=== PATIENT | female | born 1970 | race Caucasian/White ===

== ENCOUNTER 2020-08-07 13:03 | Outpatient (REF) | payer BC, SELFPAY | END 2020-08-07 13:04 | disposition home or self-care (01) | LOC: HO.LAB 13:03 | PROVIDERS: Visit Provider Internal Medicine | DX: Z20.828 Contact with and (suspected) exposure to other viral communicable diseases (principal) | CPT/HCPCS: C9803; U0003 ==

== ENCOUNTER 2020-11-20 15:12 | Outpatient (REF) | payer BC, SELFPAY ==
[2020-11-20 17:07] LABS: Hematocrit 34.9 % (37-47); Hemoglobin 11.1 g/dl (12.0-16.0); Mean Corpuscular HGB Conc 31.8 g/dl (31.0-35.0); Mean Corpuscular Hemoglobin 27.6 pg (27.0-33.0); Mean Corpuscular Volume 86.8 fL (80-98); Mean Platelet Volume 10.1 fL (9.4-12.3); Platelet Count 295 X10*3/uL (160-400); Red Blood Count 4.02 X10*6/uL (4.20-5.50); Red Cell Distribution Width 13.3 % (11.0-16.0)
[2020-11-20 17:35] LABS: HCG Quantitative < 2 mIU/mL; Thyroid Stimulating Hormone 0.66 uIU/mL (0.32-4.0)
[2020-11-21 01:26] LABS: Follicle Stimulating Hormone 8.9 mIU/mL; Lutenizing Hormone 1.5 mIU/mL
[2020-11-21 08:49] LABS: CT PCR NOT DETECTED (Not Detect.); NG PCR NOT DETECTED (Not Detect.)
[2020-11-23 01:07] LABS: HPV mRNA E6/E7 rflx Not Detected (Not Detected)
== END 2020-11-20 15:13 | disposition home or self-care (01) ==
LOC: HO.LAB 15:12
PROVIDERS: PCP Internal Medicine; Visit Provider Obstetrics & Gynecology
DX: Z01.419 Encounter for gynecological examination (general) (routine) without abnormal findings (principal); Z11.51 Encounter for screening for human papillomavirus (HPV); Z11.3 Encounter for screening for infections with a predominantly sexual mode of transmission; N92.0 Excessive and frequent menstruation with regular cycle
CPT/HCPCS: 36415; 83001; 83002; 84443; 84702; 85027; 87491; 87591; 87624; 88142

== ENCOUNTER 2020-12-10 15:59 | Outpatient (REF) | payer BC, SELFPAY ==
--- NOTE | ~2020-12-10 | US_ITS ---
EXAMINATION: US PELVIC ULTRASOUND CLINICAL INFORMATION: Excessive and frequent menstruation. COMPARISON: None. TECHNIQUE: Transabdominal and transvaginal pelvic ultrasounds were performed. Transvaginal exam was performed for better visualization of the uterus and ovaries. Transvaginal exam is limited due to patient's inability to empty her bladder. FINDINGS: The uterus is anteverted and measures 13.2 x 6.8 x 7.5 cm in dimension. Uterine echotexture is heterogeneous. There are at least 2 uterine fibroids in the anterior uterine body adjacent to the endometrium measuring 1.8 x 2 x 2.6 cm and 1.8 x 2.4 x 1.4 cm. Endometrial thickness is normal measuring 1.2 cm. There are nabothian cysts in the cervix. The right ovary is not seen. The left ovary is seen transabdominally only. The left ovary is slightly prominent and measures 5 x 2 x 3.6 cm, volume 19 mL. No focal ovarian lesion is seen. There is no fluid in the pelvis. US/US transvaginal IMPRESSION: Limited exam. Enlarged fibroid uterus. At least 2 uterine fibroids are identified in the anterior uterine body adjacent to the endometrium. Right ovary not seen.
--- NOTE | ~2020-12-10 | US_ITS ---
EXAMINATION: US PELVIC ULTRASOUND CLINICAL INFORMATION: Excessive and frequent menstruation. COMPARISON: None. TECHNIQUE: Transabdominal and transvaginal pelvic ultrasounds were performed. Transvaginal exam was performed for better visualization of the uterus and ovaries. Transvaginal exam is limited due to patient's inability to empty her bladder. FINDINGS: The uterus is anteverted and measures 13.2 x 6.8 x 7.5 cm in dimension. Uterine echotexture is heterogeneous. There are at least 2 uterine fibroids in the anterior uterine body adjacent to the endometrium measuring 1.8 x 2 x 2.6 cm and 1.8 x 2.4 x 1.4 cm. Endometrial thickness is normal measuring 1.2 cm. There are nabothian cysts in the cervix. The right ovary is not seen. The left ovary is seen transabdominally only. The left ovary is slightly prominent and measures 5 x 2 x 3.6 cm, volume 19 mL. No focal ovarian lesion is seen. There is no fluid in the pelvis. US/US pelvic complete IMPRESSION: Limited exam. Enlarged fibroid uterus. At least 2 uterine fibroids are identified in the anterior uterine body adjacent to the endometrium. Right ovary not seen.
== END 2020-12-10 16:00 | disposition home or self-care (01) ==
LOC: HO.US 15:59
PROVIDERS: Visit Provider Obstetrics & Gynecology
DX: N92.0 Excessive and frequent menstruation with regular cycle (principal)
CPT/HCPCS: 76830; 76856

== ENCOUNTER → 2020-12-19 13:04 | Outpatient (BNVA) | payer BC, SELFPAY | PROVIDERS: PCP Internal Medicine; Visit Provider Obstetrics & Gynecology ==

== ENCOUNTER → 2020-12-27 08:44 | Outpatient (BNVA) | payer BC, SELFPAY | PROVIDERS: PCP Internal Medicine; Visit Provider Nurse Practitioner ==

== ENCOUNTER 2021-01-14 13:58 | Outpatient (REF) | payer BC, SELFPAY | END 2021-01-14 13:59 | disposition home or self-care (01) | LOC: HO.LAB 13:58 | PROVIDERS: Visit Provider Obstetrics & Gynecology | DX: N92.0 Excessive and frequent menstruation with regular cycle (principal) | CPT/HCPCS: 58100; 88305 ==

== ENCOUNTER → 2021-04-08 14:45 | Outpatient (BNVA) | payer BC, SELFPAY | PROVIDERS: Visit Provider Obstetrics & Gynecology ==

== ENCOUNTER 2021-05-08 10:41 | Outpatient (REF) | payer BC, SELFPAY | END 2021-05-08 10:42 | disposition home or self-care (01) | LOC: HO.LAB 10:41 | PROVIDERS: Visit Provider Internal Medicine | DX: Z20.822 Contact with and (suspected) exposure to COVID-19 (principal) | CPT/HCPCS: C9803; U0003; U0005 ==

== ENCOUNTER 2021-05-27 13:01 | Outpatient (REF) | payer BC, SELFPAY ==
--- NOTE | ~2021-05-27 | MM_ITS ---
EXAMINATION: MM SCREENING DIGITAL BREAST TOMOSYNTHESIS, BILATERAL CLINICAL INFORMATION: Screening. Asymptomatic. The lifetime risk of breast cancer based on the Tyrer-Cuzick Model is 7%. COMPARISON: Outside mammography: ([facility]); 05/05/2013 (right, [facility]); 05/05/2013 ([facility]). TECHNIQUE: Digital breast tomosynthesis is performed in both the craniocaudal and mediolateral oblique views along with computer-aided detection (CAD). Synthesized 2D images are generated from the tomosynthesis. Additional left CC view is provided. FINDINGS: There are scattered areas of fibroglandular density (ACR BI-RADS breast composition Category b). There are no significant masses, abnormal calcifications, or other abnormalities. Parenchymal pattern is similar to prior study. There is a oval nodular asymmetry 1 cm mid upper left breast on MLO view without significant change since 2018. The axilla and skin contours are unremarkable. MM/MM tomosynthesis screening BI IMPRESSION: No significant change from prior outside exam. ASSESSMENT: BI-RADS 2: Benign RECOMMENDATION: Routine annual mammography screening. This patient's information was entered into a reminder system with a target due date for their next mammogram.
== END 2021-05-27 13:02 | disposition home or self-care (01) ==
LOC: HO.MAMMO 13:01
PROVIDERS: Visit Provider Obstetrics & Gynecology
DX: Z12.31 Encounter for screening mammogram for malignant neoplasm of breast (principal)
CPT/HCPCS: 77063; 77067

== ENCOUNTER → 2021-09-08 15:54 | Outpatient (BNVA) | payer BC, SELFPAY | PROVIDERS: Visit Provider Obstetrics & Gynecology ==

== ENCOUNTER 2022-06-01 16:01 | Outpatient (REF) | payer MEDICAID, SELFPAY ==
--- NOTE | ~2022-06-01 | MM_ITS ---
EXAMINATION: MM SCREENING DIGITAL BREAST TOMOSYNTHESIS, BILATERAL CLINICAL INFORMATION: Screening. Asymptomatic. The lifetime risk of breast cancer based on the Tyrer-Cuzick Model is 7%. COMPARISON: Mammography: 05/27/2021; outside mammography 12/15/2017 ([facility]); outside mammography 05/12/2013, 05/05/2013 ([facility]). TECHNIQUE: Digital breast tomosynthesis is performed in both the craniocaudal and mediolateral oblique views along with computer-aided detection (CAD). Synthesized 2D images are generated from the tomosynthesis. FINDINGS: There are scattered areas of fibroglandular density (ACR BI-RADS breast composition Category b). There are no significant masses, abnormal calcifications, or other abnormalities. Parenchymal pattern is similar to prior exams. No developing density or architectural abnormality. There is a stable smooth oval nodule upper outer quadrant left breast again noted. The axilla and skin contours are unremarkable. MM/MM tomosynthesis screening BI IMPRESSION: No mammographic evidence of malignancy. ASSESSMENT: BI-RADS 2: Benign RECOMMENDATION: Routine annual mammography screening. This patient's information was entered into a reminder system with a target due date for their next mammogram.
== END 2022-06-01 16:02 | disposition home or self-care (01) ==
LOC: HO.MAMMO 16:01
PROVIDERS: Visit Provider Obstetrics & Gynecology
DX: Z12.31 Encounter for screening mammogram for malignant neoplasm of breast (principal)
CPT/HCPCS: 77063; 77067

== ENCOUNTER 2024-01-20 15:15 | Outpatient (REF) | payer OTHER, SELFPAY | END 2024-01-20 15:16 | disposition home or self-care (01) | LOC: HO.MAMMO 15:15 | PROVIDERS: PCP Internal Medicine; Visit Provider Obstetrics & Gynecology | DX: Z12.31 Encounter for screening mammogram for malignant neoplasm of breast (principal) | CPT/HCPCS: 77063; 77067 ==

== ENCOUNTER → 2024-01-20 15:45 | Outpatient (BNV) | payer OTHER, SELFPAY | PROVIDERS: PCP Internal Medicine; Visit Provider Radiology Diagnostic Radiology | DX: Z12.31 Encounter for screening mammogram for malignant neoplasm of breast (principal) | CPT/HCPCS: 77063; 77067 ==

== ENCOUNTER 2025-04-02 08:27 | Outpatient (REF) | payer OTHER, SELFPAY ==
--- OUTSIDE RECORDS SUMMARY | 2024-08-03 07:30 | XMS_ITS ---
Author Organization [facility] [address] Address [address] [place] [address] Care Team Providers Care Book Reviewer Name Role Phone HAWAKimberly CLAUDIA Unavailable [phone] Medications Medication SIG (Take, Route, Frequency, Duration) Notes Start Date End Date Status Mirtazapine 15 MG 1 tablet at bedtime Orally Once a day; Duration: 30 days Active Cephalexin 500 MG 1 capsule Orally thr ee times a day; Duration: 7 days Active Ferretts 325 (106 Fe) MG TAKE 1 TABLET B Y MOUTH EVERY DAY; Duration: 90 Active Vitamin C 500 MG TAKE 1 CAPSULE BY MO UTH EVERY DAY FOR 90 DAYS; Duration: 90 Active Memantine HCl 5 MG 1 tablet Orally Once a day; Duration: 30 days Active Escitalopram Oxalate 10 MG TAKE 1 TABLET BY MOUTH EVERY DAY; Duration: 90 Active Pantoprazole Sodium 40 MG TAKE 1 TABLET BY MOUTH EVERY DAY; Duration: 90 Active Vraylar 1.5 MG TAKE 1 CAPSULE BY MO UTH EVERY DAY FOR 90 DAYS; Duration: 30 Active Encounters Encounter Location Date Provider Diagnosis [facility] [address] [place] [id number] 08/03/2024 CLAUDIA GARCIA Encephalopathy, unspecified type G93.40 ; Dementia with anxiety, unspecified dementia severity, unspecified dementia type F03.94 ; Memory loss, short term R41.3 ; Cognitive impairment R41.89 ; Hypertension, unspecified type I10 ; Gastroesophageal reflux disease without esophagitis K21.9 ; Anemia, unspecified type D64.9 ; Other incomplete lesion at C2 level of cervical spinal cord, initial encounter S14.152A and Mixed incontinence N39.46 Assessments Encounter Date Diagnosis (ICD Code) Assessment Notes Treatment Notes Treatment Clinical Notes Section Notes 08/03/2024 Encephalopathy, unspecified type (ICD-10 - G93.40) Acute Concerns/Problem List: 08/03/2024 Of note, some information is being carried forward from prior records for informational purposes only and is being cited so that efficiency, safety and quality of the patient's care is not compromised This note was prepared using voice recognition software and direct typing Please excuse inadvertent supervisor stone or typing errors, or uncorrected word substitutions Although every attempt has been made by the provider to proofread this document, occasional misspellings and typographical errors may still be present Due to the previous pandemic, and the use of personal protective equipment (PPE) This may decrease voice recognition accuracy Inadvertent supervisor stone errors may occur 08/03/2024 Dementia with anxiety, unspecified dementia severity, unspecified dementia type (ICD-10 - F03.94) Acute Concerns/Problem List: 08/03/2024 Of note, some information is being carried forward from prior records for informational purposes only and is being cited so that efficiency, safety and quality of the patient's care is not compromised This note was prepared using voice recognition software and direct typing Please excuse inadvertent supervisor stone or typing errors, or uncorrected word substitutions Although every attempt has been made by the provider to proofread this document, occasional misspellings and typographical errors may still be present Due to the previous pandemic, and the use of personal protective equipment (PPE) This may decrease voice recognition accuracy Inadvertent supervisor stone errors may occur 08/03/2024 Memory loss, short term (ICD-10 - R41.3) Acute Concerns/Problem List: 08/03/2024 Of note, some information is being carried forward from prior records for informational purposes only and is being cited so that efficiency, safety and quality of the patient's care is not compromised This note was prepared using voice recognition software and direct typing Please excuse inadvertent supervisor stone or typing errors, or uncorrected word substitutions Although every attempt has been made by the provider to proofread this document, occasional misspellings and typographical errors may still be present Due to the previous pandemic, and the use of personal protective equipment (PPE) This may decrease voice recognition accuracy Inadvertent supervisor stone errors may occur 08/03/2024 Cognitive impairment (ICD-10 - R41.89) Acute Concerns/Problem List: 08/03/2024 Of note, some information is being carried forward from prior records for informational purposes only and is being cited so that efficiency, safety and quality of the patient's care is not compromised This note was prepared using voice recognition software and direct typing Please excuse inadvertent supervisor stone or typing errors, or uncorrected word substitutions Although every attempt has been made by the provider to proofread this document, occasional misspellings and typographical errors may still be present Due to the previous pandemic, and the use of personal protective equipment (PPE) This may decrease voice recognition accuracy Inadvertent supervisor stone errors may occur 08/03/2024 Hypertension, unspecified type (ICD-10 - I10) Acute Concerns/Problem List: 08/03/2024 Of note, some information is being carried forward from prior records for informational purposes only and is being cited so that efficiency, safety and quality of the patient's care is not compromised This note was prepared using voice recognition software and direct typing Please excuse inadvertent supervisor stone or typing errors, or uncorrected word substitutions Although every attempt has been made by the provider to proofread this document, occasional misspellings and typographical errors may still be present Due to the previous pandemic, and the use of personal protective equipment (PPE) This may decrease voice recognition accuracy Inadvertent supervisor stone errors may occur 08/03/2024 Gastroesophageal reflux disease without esophagitis (ICD-10 - K21.9) Acute Concerns/Problem List: 08/03/2024 Of note, some information is being carried forward from prior records for informational purposes only and is being cited so that efficiency, safety and quality of the patient's care is not compromised This note was prepared using voice recognition software and direct typing Please excuse inadvertent supervisor stone or typing errors, or uncorrected word substitutions Although every attempt has been made by the provider to proofread this document, occasional misspellings and typographical errors may still be present Due to the previous pandemic, and the use of personal protective equipment (PPE) This may decrease voice recognition accuracy Inadvertent supervisor stone errors may occur 08/03/2024 Anemia, unspecified type (ICD-10 - D64.9) Acute Concerns/Problem List: 08/03/2024 Of note, some information is being carried forward from prior records for informational purposes only and is being cited so that efficiency, safety and quality of the patient's care is not compromised This note was prepared using voice recognition software and direct typing Please excuse inadvertent supervisor stone or typing errors, or uncorrected word substitutions Although every attempt has been made by the provider to proofread this document, occasional misspellings and typographical errors may still be present Due to the previous pandemic, and the use of personal protective equipment (PPE) This may decrease voice recognition accuracy Inadvertent supervisor stone errors may occur 08/03/2024 Other incomplete lesion at C2 level of cervical spinal cord, initial encounter (ICD-10 - S14.152A) Acute Concerns/Problem List: 08/03/2024 Of note, some information is being carried forward from prior records for informational purposes only and is being cited so that efficiency, safety and quality of the patient's care is not compromised This note was prepared using voice recognition software and direct typing Please excuse inadvertent supervisor stone or typing errors, or uncorrected word substitutions Although every attempt has been made by the provider to proofread this document, occasional misspellings and typographical errors may still be present Due to the previous pandemic, and the use of personal protective equipment (PPE) This may decrease voice recognition accuracy Inadvertent supervisor stone errors may occur 08/03/2024 Mixed incontinence (ICD-10 - N39.46) Acute Concerns/Problem List: 08/03/2024 Of note, some information is being carried forward from prior records for informational purposes only and is being cited so that efficiency, safety and quality of the patient's care is not compromised This note was prepared using voice recognition software and direct typing Please excuse inadvertent supervisor stone or typing errors, or uncorrected word substitutions Although every attempt has been made by the provider to proofread this document, occasional misspellings and typographical errors may still be present Due to the previous pandemic, and the use of personal protective equipment (PPE) This may decrease voice recognition accuracy Inadvertent supervisor stone errors may occur Plan Of Treatment Medication Medication Name Sig Start Date Stop Date Notes Mirtazapine 15 MG 1 tablet at bedtime Orally Once a day; Duration: 30 days Cephalexin 500 MG 1 capsule Orally thr ee times a day; Duration: 7 days Progress Notes * TERRA RUSSODOB:[birth year] (54 yo F)Acc No.[id number]:08/03/2024 Progress Notes Patient: TERRA SON Provider: Nadiya GARCIA NP :1970 A ge:53 Y S ex:Female Date:08/03/2024 Address:[address] [place] [address], [id number] Subjective: * Chief Complaints: * * HPI: C onstitutional: Patient is here for Chronic Disease Management follow-up visit Patient seen and examined. Full past medical history, social history, family history, allergies and current medications were reviewed and updated. Acute Concerns/Problem List: 08/03/2024 Here with Tisha daughter We recently completed [place] paperwork for her HCP Tisha , ACP forms on file, Pt is currently attending adult day program from 8:30-2:30 5 days a week. Pt's notes that she has gained some weight recently and believes that it is due to her medications, likely the escitalopram. 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 Family is currently taking care of her. per daughter forgetting to eat, takes showers multiple times a day because she forgets, Does not Do ADL's unless prompted, worsening functionality per family She is also incontinent of stool and urine and requires wearing adult briefs daily she endorses worsening of her vision since the memory problem started. pt would like closer supervision, and adult day care they fear for her being alone Her reports that her appetite has been [...] the head with woman's shoes while at [employer], causing head laceration since then symptoms have persisted She was referred to neurology at [facility] Evaluation was done in the office including [...] COVID MRNA Vax -3 doses shingrix x 2 Flu 2023: at pharmacy Mammo- UTD Dexa- Not yet Cscope - Done November 2020-Surveillance every 10 years. * ROS: A ll Other Systems: Review of Systems (ROS) A ll others negative except those mentioned in HPI. * Medical History: * Medications: T aking Cephalexin 500 MG Capsule 1 capsule Orally three times a day , Taking Escitalopram Oxalate 10 MG Tablet TAKE 1 TABLET BY MOUTH EVERY DAY , Taking Pantoprazole Sodium 40 MG Tablet Delayed Release TAKE 1 TABLET BY MOUTH EVERY DAY , Taking Vraylar 1.5 MG Capsule TAKE 1 CAPSULE BY MOUTH EVERY DAY FOR 90 DAYS , Taking Ferretts 325 (106 Fe) MG Tablet TAKE 1 TABLET BY MOUTH EVERY DAY , Taking Vitamin C 500 MG Capsule TAKE 1 CAPSULE BY MOUTH EVERY DAY FOR 90 DAYS , Taking Mirtazapine 15 MG Tablet 1 tablet at bedtime Orally Once a day , Taking Memantine HCl 5 MG Tablet 1 tablet Orally Once a day Objective: * Vitals: * Examination: G eneral Examination: GENERAL APPEARANCE: i n no acute distress, well developed, well nourished. H EAD: n ormocephalic, atraumatic. E YES: p upils equal, round, reactive to light and accommodation. E ARS: n ormal. O RAL CAVITY: m ucosa moist. T HROAT: c lear. N LAST/THYROID: n last supple, full range of motion, no cervical lymphadenopathy. S KIN: n o suspicious lesions, warm and dry. H EART: n o murmurs, regular rate and rhythm, S1, S2 normal. L UNGS: c lear to auscultation bilaterally. A BDOMEN: n ormal, bowel sounds present, soft, nontender, nondistended. E XTREMITIES: n o clubbing, cyanosis, or edema. N EUROLOGIC: n onfocal, motor strength normal upper and [...] nemia, unspecified type - D64.9 8 . O ther incomplete lesion at C2 level of cervical spinal cord, initial encounter - S14.152A 9. M ixed incontinence - N39.46 Acute Concerns/Problem List: 08/03/2024 Of note, some information is being carried forward from prior records for informational purposes only and is being cited so that efficiency, safety and quality of the patient's care is not compromised This note was prepared using voice recognition software and direct typing Please excuse inadvertent supervisor stone or typing errors, or uncorrected word substitutions Although every attempt has been made by the provider to proofread this document, occasional misspellings and typographical errors may still be present Due to the previous pandemic, and the use of personal protective equipment (PPE) This may decrease voice recognition accuracy Inadvertent supervisor stone errors may occur. Plan: * Treatment: * Procedure Codes: 9 9199 NO SHOW OFFICE VISIT * Images: Billing Information: * Visit Code: * Procedure Codes: 97010 NO SHOW OFFICE VISIT. Care Plan Details* * Electronic signature of TAMMY GARCIA on 04/02/2025 at 08:51 AM EDT Sign off status: Pending * Provider: Nadiya GARCIA NP Date: 10/04/2023 Generated for Yin carter/Moses/Lee on: 0 04/02/2025 08:51 AM EDT History and Physical Notes * HPI (History of Present Illness) Category Sub-Category Detail Notes Category Not es Constitutional Patient is here for Chronic Disease Management follow-up visit Patient seen and examined. Full past medical history, social history, family history, allergies and current medications were reviewed and updated. Acute Concerns/Problem List: 08/03/2024 Here with Tisha daughter We recently completed [place] paperwork for her HCP Tisha , ACP forms on file, Pt is currently attending adult day program from 8:30-2:30 5 days a week. Pt's notes that she has gained some weight recently and believes that it is due to her medications, likely the escitalopram. 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 Family is currently taking care of her. per daughter forgetting to eat, takes showers multiple times a day because she forgets, Does not Do ADL's unless prompted, worsening functionality per family She is also incontinent of stool and urine and requires wearing adult briefs daily she endorses worsening of her vision since the memory problem started. pt would like closer supervision, and adult day care they fear for her being alone Her reports that her appetite has been [...] the head with woman's shoes while at [employer], causing head laceration since then symptoms have persisted She was referred to neurology at [facility] Evaluation was done in the office including [...] COVID MRNA Vax -3 doses shingrix x 2 Flu 2023: at pharmacy Mammo- UTD Dexa- Not yet Cscope - Done November 2020-Surveillance every 10 years Examination Category Sub-Category Detail Notes Category Not es General Examination GENERAL APPEARANCE: in no ac [place] distress, well developed, well nourished HEAD: normocephalic, [...]
--- OUTSIDE RECORDS SUMMARY | 2025-04-02 08:51 | XMS_ITS | Clinical Summary ---
Author Organization [facility] Address [address] [place] [address] Care Team Providers Care Elevator Erector Name Role Phone Karley Figueroa MD Primary Care Provider Allergies No known active allergies Medications Medication Sig Dispensed Refills Start Date End Date Status Ascorbic Acid (Vitamin C) 500 MG CAPS TAKE 1 CAPSULE BY MOUTH EVERY DAY FOR 90 DAYS 0 11/11/2023 Active Vraylar 1.5 MG capsule TAKE 1 CAPSULE BY MOUTH EVERY DAY FOR 90 DAYS 0 11/30/2023 Active lisinopril (PRINIVIL,ZESTRIL) tablet 10 mg TAKE 1 TABLET BY MOUTH EVERY DAY FOR 90 DAYS 0 11/11/2023 Active mirtazapine (REMERON) 15 MG tablet Take 1 tablet (15 mg total) by mouth every night at bedtime. 0 11/15/2023 Active pantoprazole (PROTONIX) 40 MG tablet Take 1 tablet (40 mg total) by mouth daily. 0 11/30/2023 Active escitalopram (LEXAPRO) 20 MG tablet TAKE 1 TABLET BY MOUTH EVERY DAY FOR 90 DAYS 0 11/11/2023 Active Ferretts 325 (106 Fe) MG TABS Take 1 tablet by mouth daily. 0 11/11/2023 Active traZODone (DESYREL) 50 MG tablet Take 1 tablet (50 mg total) by mouth every night at bedtime. 0 Active memantine (NAMENDA) 5 MG tabletIndications:Mem ory loss, short term Take 1 tablet (5 mg total) by mouth daily. 30 tablet 2 01/28/2024 Active Social History Tobacco Use Types Packs/Day Years Used Date Smoking Tobacco: Never Assessed Sex and Gender Information Value Date Recorded Sex Assigned at Female 12/10/2023 2:02 PM EDT Gender Identity Not on file Sexual Orientation Not on file Job Start Date Occupation Industry Not on file Not on file Not on file Last Filed Vital Signs Vital Sign Reading Time Taken Comments Blood Pressure 133/84 01/28/2024 3:50 PM EDT Pulse 79 01/28/2024 3:50 PM EDT Temperature - - Respiratory Rate - - Oxygen Saturation - - Inhaled Oxygen Concentration - - Weight - - Height - - Body Mass Index - - Plan of Treatment Health Maintenance Due Date Last Done Comments Hepatitis B Vaccines (1 of 3 - 3-dose series) 1970 Hepatitis C Screening 1970 COVID-19 Vaccine (#1) 02/17/1970 Depression Screening 1981 Preventative Health Evaluation 1987 DTap / Tdap / Td (1 - Tdap) 1988 Cervical Cancer Screening (P ap Smear) 1990 Colon Cancer Screening (Colonoscopy) 2014 Breast Cancer Screening (Mammogram) 2019 Shingrix-Zoster Vaccine (1 of 2) 2019 Influenza Vaccine (#1) 2025 Pneumococcal Vaccine Aged Out No long er eligible based on patient's age to complete this topic RSV Ped < 20 months Aged Out No longe r eligible based on patient's age to complete this topic Care Teams Elevator Erector Relationship Specialty Start Date End Date Karley Figueroa MD [address] [place] [phone] PCP - General Internal Medicine 11/22/23
--- OUTSIDE RECORDS SUMMARY | 2025-04-02 08:51 | XMS_ITS | Clinical Summary ---
Author Organization [facility] Address [address] [place] [id number] Phone Care Team Providers Care Project Crew Worker Name Role Phone Mikayla Figueroa MD Primary Care Provider + [phone] Social History Tobacco Use Types Packs/Day Years Used Date Smoking Tobacco: Never Assessed Education Answer Date Recorded Are you interested in more education? Not on angelika e 05/18/2023 Are you concerned about learning? Not on file 05/18/2023 No 05/18/2023 No 05/18/2023 Digital Access Answer Date Recorded No 05/18/2023 No 05/18/2023 Reliable internet access at home? Not on file 05/18/2023 Device with a working camera? Not on file Comments Unknown Sex and Gender Information Value Date Recorded Sex Assigned at Not on file Legal Sex Female 3:22 PM EDT Gender Identity Not on file Sexual Orientation Not on file Plan of Treatment Health Maintenance Due Date Last Done Comments Adult Td,Tdap Booster 1970 LIPID PANEL 1969 DEPRESSION SCREENING 1981 SMOKING Hx and SMOKELESS TOB ACCO SCREENING 1982 HEPATITIS C SCREENING 1987 HIV ONE-TIME SCREENING (18-6 5 YEARS) 1987 PAP SMEAR 1990 MAMMOGRAM 2009 COLOGUARD 2014 COLONOSCOPY 2014 COLORECTAL CANCER SCREENING 2014 FIT TEST 2014 FOBT 2014 SIGMOIDOSCOPY 2014 VIRTUAL COLONOSCOPY 2014 PNEUMOCOCCAL VACCINES (50+ y ears) (1 of 1 - PCV) 2019 ZOSTER VACCINES (1 of 2) 2019 COVID-19 VACCINE (2023-2 5 season) 2024 HEPATITIS A VACCINES Aged Out No long er eligible based on patient's age to complete this topic HIB VACCINES Aged Out No longer eligi ble based on patient's age to complete this topic MENINGOCOCCAL VACCINES (ACWY) Aged Out No longer eligible based on patient's age to complete this topic MENINGOCOCCAL VACCINES (B) Aged Out N o longer eligible based on patient's age to complete this topic Medical Devices Not on file Insurance Care Teams Project Crew Worker Relationship Specialty Start Date End Date Mikayla Figueroa MD [address] [place] [phone] PCP - General 05/10/23 Additional Source Comments The information contained in this document represents components of the legal health record. It is not the complete legal health record.[facility]
--- OUTSIDE RECORDS SUMMARY | 2025-04-02 08:51 | XMS_ITS | Clinical Summary ---
Author Organization [facility] Address [address] [place] [address] Care Team Providers Care Flexographic Press Operator Name Role Phone Name, Harvey CARDOZO Primary Care Provider [phone] Medications lisinopriL (PRINIVIL,ZESTR IL) 10 mg tablet Take 1 tablet (10 mg total) by mouth 1 (one) time each day. 11/11/2023 Active ferrous fumarate 325 mg (106 mg iron) tablet Take 1 tablet by mouth 1 (one) time each day. 11/11/2023 Active escitalopram (LEXAPRO) 20 mg tablet Take 1 tablet (20 mg total) by mouth 1 (one) time each day. 11/11/2023 Active cariprazine (Vraylar) 1.5 mg capsule Take 1 capsule (1.5 mg total) by mouth 1 (one) time each day. 11/30/2023 Active ascorbic acid, vitamin C, 500 mg capsule Take 1 capsule by mouth 1 (one) time each day. 11/11/2023 Active memantine (NAMENDA) 5 mg tablet Take 1 tablet (5 mg total) by mouth 1 (one) time each day. 90 each 1 06/19/2024 Active Surgical History Surgery Date Site/Laterality Comments TUBAL LIGATION PROCEDURE: HISTORICAL TUBAL LIGATION Family History Medical History Relation Name Comments Hypertension Father Diabetes Mother Hypertension Mother Relation Name Status Comments Brother 1 Alive Brother 2 Alive Brother 3 Alive Brother 4 Alive Daughter 1 Alive Daughter 2 Alive Daughter 3 Alive Father mi Mother Alive dm Sister Alive Son Alive Social History Tobacco Use Types Packs/Day Years Used Date Smoking Tobacco: Former Alcohol Use Standard Drinks/Week Comments Yes 0 (1 standard drink = 0.6 oz pur e alcohol) Comments Unknown Sex and Gender Information Value Date Recorded Sex Assigned at Not on file Legal Sex Female 2:14 AM EST Gender Identity Not on file Sexual Orientation Not on file Obstetrics History Last Filed Vital Signs Vital Sign Reading Time Taken Comments Blood Pressure 133/84 01/28/2024 3:50 PM EDT Lef t arm Pulse 79 01/28/2024 3:50 PM EDT Temperature - - Respiratory Rate - - Oxygen Saturation - - Inhaled Oxygen Concentration - - Weight - - Height - - Body Mass Index - - Plan of Treatment Health Maintenance Due Date Last Done Comments Breast Cancer Screening 1969 DTaP,Tdap,and Td Vaccines (1 - Tdap) 1988 Hepatitis B Vaccines (1 of 3 - 19+ 3-dose series) 1988 Cervical Cancer Screening: P ap Smear 1990 Pneumococcal Vaccine: 50+ Ye ars (1 of 1 - PCV) 2019 Zoster Vaccines (1 of 2) 2019 Colorectal Cancer Screening: Colonoscopy 07/19/2022 HIV Screening 07/19/2022 Hepatitis C Screening 07/19/2022 Social Influencers of Health Screening 07/19/2022 COVID-19 Vaccine ( - 2023-2 5 season) 2024 Depression Screening 08/16/2024 Influenza Vaccine (#1) 2025 HIB Vaccines Aged Out No longer eligi ble based on patient's age to complete this topic HPV Vaccines Aged Out No longer eligi ble based on patient's age to complete this topic Hepatitis A Vaccines Aged Out No long er eligible based on patient's age to complete this topic IPV Vaccines Aged Out No longer eligi ble based on patient's age to complete this topic MMR Vaccines Aged Out No longer eligi ble based on patient's age to complete this topic Meningococcal ACWY Vaccine Aged Out N o longer eligible based on patient's age to complete this topic Meningococcal B Vaccine Aged Out No l onger eligible based on patient's age to complete this topic RSV Immunization Patients Un jeff 20 months Aged Out No longer eligible b ased on patient's age to complete this topic Varicella Vaccines Aged Out No longer eligible based on patient's age to complete this topic Care Teams Flexographic Press Operator Relationship Specialty Start Date End Date Name, MD Harvey [address] [phone] (Work) PCP - General 12/20/07
--- OUTSIDE RECORDS SUMMARY | 2025-04-02 08:51 | XMS_ITS ---
Author Name [facility] Organization Unknown History of Medication Use Medication Directions Dispensed Refills Start Date End Date Stat us memantine (NAMENDA) 5 mg tablet Take 1 tablet (5 mg total) by mouth 1 (one) time each day. 06/19/2024 active cariprazine (Vraylar) 1.5 mg capsule Take 1 capsule (1.5 mg total) by mouth 1 (one) time each day. 11/30/2023 active Vraylar 1.5 MG capsule TAKE 1 CAPSULE BY MOUTH EVERY DAY FOR 90 DAYS 11/30/2023 active Ascorbic Acid (Vitamin C) 500 MG CAPS TAKE 1 CAPSULE BY MOUTH EVERY DAY FOR 90 DAYS 11/11/2023 active ascorbic acid, vitamin C, 500 mg capsule Take 1 capsule by mouth 1 (one) time each day. 11/11/2023 active escitalopram (LEXAPRO) 20 mg tablet Take 1 tablet (20 mg total) by mouth 1 (one) time each day. 11/11/2023 active ferrous fumarate 325 mg (106 mg iron) tablet Take 1 tablet by mouth 1 (one) time each day. 11/11/2023 active lisinopriL (PRINIVIL,ZESTRIL) 10 mg tablet Take 1 tablet (10 mg total) by mouth 1 (one) time each day. 11/11/2023 active traZODone (DESYREL) 50 MG tablet Take 1 tablet (50 mg total) by mouth every night at bedtime. active Problems Problem Status Onset Date Problem Type Date of Resoluti on Source Memory loss, short term active EncounterDiagnosisAct CTTHNE MG
== END 2025-04-02 08:28 | disposition home or self-care (01) ==
LOC: HO.MAMMO 08:27
PROVIDERS: PCP Family Medicine; Visit Provider Family Medicine
DX: Z13.89 Encounter for screening for other disorder (principal)

== ENCOUNTER 2025-08-07 12:56 | Emergency (ER) | payer OTHER, SELFPAY ==
--- OUTSIDE RECORDS SUMMARY | 2024-04-08 04:30 | XMS_ITS ---
Author Organization [facility] Address [address] [place] [address] Care Team Providers Care Environmental Science Instructor Name Role Phone CLAUDIA GARCIA Unavailable [phone] REASON FOR VISIT FMLA Medications Medication SIG (Take, Route, Frequency, Duration) Notes Start Date End Date Status Mirtazapine 15 MG Tablet 1 tablet at bed time Orally Once a day; Duration: 30 days Active Cephalexin 500 MG Capsule 1 capsule Oral ly three times a day; Duration: 7 days Active Encounters Encounter Location Date Provider Diagnosis [facility] [address] [place] [address] 04/08/2024 CLAUDIA GACRIA Encephalopathy, unspecified type G93.40 ; Dementia with anxiety, unspecified dementia severity, unspecified dementia type F03.94 ; Memory loss, short term R41.3 ; Cognitive impairment R41.89 ; Hypertension, unspecified type I10 ; Gastroesophageal reflux disease without esophagitis K21.9 ; Anemia, unspecified type D64.9 ; Hyperlipidemia, unspecified hyperlipidemia type E78.5 and Other incomplete lesion at C2 level of cervical spinal cord, initial encounter S14.152A Assessments Encounter Date Diagnosis (ICD Code) Assessment Notes Treatment Notes Treatment Clinical Notes Section Notes 04/08/2024 Encephalopathy, unspecified type (ICD-10 - G93.40) Patient here for FMLA Acute Concerns/Problem List: 04/04/2024 FMLA paperwork was completed today Time spent 30 minutes Coordination of care, chart review, paperwork filled out and filed in EMR Of note, some information is being carried forward from prior records for informational purposes only and is being cited so that efficiency, safety and quality of the patient's care is not compromised This note was prepared using voice recognition software and direct typing Please excuse inadvertent hitch technician or typing errors, or uncorrected word substitutions Although every attempt has been made by the provider to proofread this document, occasional misspellings and typographical errors may still be present Due to the previous pandemic, and the use of personal protective equipment (PPE) This may decrease voice recognition accuracy Inadvertent hitch technician errors may occur 04/08/2024 Dementia with anxiety, unspecified dementia severity, unspecified dementia type (ICD-10 - F03.94) Patient here for FMLA Acute Concerns/Problem List: 04/04/2024 FMLA paperwork was completed today Time spent 30 minutes Coordination of care, chart review, paperwork filled out and filed in EMR Of note, some information is being carried forward from prior records for informational purposes only and is being cited so that efficiency, safety and quality of the patient's care is not compromised This note was prepared using voice recognition software and direct typing Please excuse inadvertent hitch technician or typing errors, or uncorrected word substitutions Although every attempt has been made by the provider to proofread this document, occasional misspellings and typographical errors may still be present Due to the previous pandemic, and the use of personal protective equipment (PPE) This may decrease voice recognition accuracy Inadvertent hitch technician errors may occur 04/08/2024 Memory loss, short term (ICD-10 - R41.3) Patient here for FMLA Acute Concerns/Problem List: 04/04/2024 FMLA paperwork was completed today Time spent 30 minutes Coordination of care, chart review, paperwork filled out and filed in EMR Of note, some information is being carried forward from prior records for informational purposes only and is being cited so that efficiency, safety and quality of the patient's care is not compromised This note was prepared using voice recognition software and direct typing Please excuse inadvertent hitch technician or typing errors, or uncorrected word substitutions Although every attempt has been made by the provider to proofread this document, occasional misspellings and typographical errors may still be present Due to the previous pandemic, and the use of personal protective equipment (PPE) This may decrease voice recognition accuracy Inadvertent hitch technician errors may occur 04/08/2024 Cognitive impairment (ICD-10 - R41.89) Patient here for FMLA Acute Concerns/Problem List: 04/04/2024 FMLA paperwork was completed today Time spent 30 minutes Coordination of care, chart review, paperwork filled out and filed in EMR Of note, some information is being carried forward from prior records for informational purposes only and is being cited so that efficiency, safety and quality of the patient's care is not compromised This note was prepared using voice recognition software and direct typing Please excuse inadvertent hitch technician or typing errors, or uncorrected word substitutions Although every attempt has been made by the provider to proofread this document, occasional misspellings and typographical errors may still be present Due to the previous pandemic, and the use of personal protective equipment (PPE) This may decrease voice recognition accuracy Inadvertent hitch technician errors may occur 04/08/2024 Hypertension, unspecified type (ICD-10 - I10) Patient here for FMLA Acute Concerns/Problem List: 04/04/2024 FMLA paperwork was completed today Time spent 30 minutes Coordination of care, chart review, paperwork filled out and filed in EMR Of note, some information is being carried forward from prior records for informational purposes only and is being cited so that efficiency, safety and quality of the patient's care is not compromised This note was prepared using voice recognition software and direct typing Please excuse inadvertent hitch technician or typing errors, or uncorrected word substitutions Although every attempt has been made by the provider to proofread this document, occasional misspellings and typographical errors may still be present Due to the previous pandemic, and the use of personal protective equipment (PPE) This may decrease voice recognition accuracy Inadvertent hitch technician errors may occur 04/08/2024 Gastroesophageal reflux disease without esophagitis (ICD-10 - K21.9) Patient here for FMLA Acute Concerns/Problem List: 04/04/2024 FMLA paperwork was completed today Time spent 30 minutes Coordination of care, chart review, paperwork filled out and filed in EMR Of note, some information is being carried forward from prior records for informational purposes only and is being cited so that efficiency, safety and quality of the patient's care is not compromised This note was prepared using voice recognition software and direct typing Please excuse inadvertent hitch technician or typing errors, or uncorrected word substitutions Although every attempt has been made by the provider to proofread this document, occasional misspellings and typographical errors may still be present Due to the previous pandemic, and the use of personal protective equipment (PPE) This may decrease voice recognition accuracy Inadvertent hitch technician errors may occur 04/08/2024 Anemia, unspecified type (ICD-10 - D64.9) Patient here for FMLA Acute Concerns/Problem List: 04/04/2024 FMLA paperwork was completed today Time spent 30 minutes Coordination of care, chart review, paperwork filled out and filed in EMR Of note, some information is being carried forward from prior records for informational purposes only and is being cited so that efficiency, safety and quality of the patient's care is not compromised This note was prepared using voice recognition software and direct typing Please excuse inadvertent hitch technician or typing errors, or uncorrected word substitutions Although every attempt has been made by the provider to proofread this document, occasional misspellings and typographical errors may still be present Due to the previous pandemic, and the use of personal protective equipment (PPE) This may decrease voice recognition accuracy Inadvertent hitch technician errors may occur 04/08/2024 Hyperlipidemia, unspecified hyperlipidemia type (ICD-10 - E78.5) Patient here for FMLA Acute Concerns/Problem List: 04/04/2024 FMLA paperwork was completed today Time spent 30 minutes Coordination of care, chart review, paperwork filled out and filed in EMR Of note, some information is being carried forward from prior records for informational purposes only and is being cited so that efficiency, safety and quality of the patient's care is not compromised This note was prepared using voice recognition software and direct typing Please excuse inadvertent hitch technician or typing errors, or uncorrected word substitutions Although every attempt has been made by the provider to proofread this document, occasional misspellings and typographical errors may still be present Due to the previous pandemic, and the use of personal protective equipment (PPE) This may decrease voice recognition accuracy Inadvertent hitch technician errors may occur 04/08/2024 Other incomplete lesion at C2 level of cervical spinal cord, initial encounter (ICD-10 - S14.152A) Patient here for FMLA Acute Concerns/Problem List: 04/04/2024 FMLA paperwork was completed today Time spent 30 minutes Coordination of care, chart review, paperwork filled out and filed in EMR Of note, some information is being carried forward from prior records for informational purposes only and is being cited so that efficiency, safety and quality of the patient's care is not compromised This note was prepared using voice recognition software and direct typing Please excuse inadvertent hitch technician or typing errors, or uncorrected word substitutions Although every attempt has been made by the provider to proofread this document, occasional misspellings and typographical errors may still be present Due to the previous pandemic, and the use of personal protective equipment (PPE) This may decrease voice recognition accuracy Inadvertent hitch technician errors may occur Plan Of Treatment Medication Medication Name Sig Start Date Stop Date Notes Mirtazapine 15 MG Tablet 1 tablet at bed time Orally Once a day; Duration: 30 days Cephalexin 500 MG Capsule 1 capsule Oral ly three times a day; Duration: 7 days History and Physical Notes * HPI (History of Present Illness) Category Sub-Category Detail Notes Category Not es Constitutional Patient is here for FMLA paperwork documentation Patient seen and examined. Full past medical history, social history, family history, allergies and current medications were reviewed and updated. Patient presented today with her daughter Tisha for follow up. Acute Concerns/Problem List: 04/08/2024 here for FMLA with daughter needing paperwork filled out for employer Updated labs reviewed HCP Tisha , [facility] forms on file Pt is currently attending adult day program from 8:30-2:30 5 days a week. Pt's notes that she has gained some weight recently and believes that it is due to her medications, likely the escitalopram. Was supposedly sent to neurologist at [facility], however they deferred seeing her because of the diagnosis Currently getting weekly, 11hrs [employer], needs full care. Family is currently taking care of her. per daughter forgetting to eat, takes showers multiple times a day because she forgets, Does not Do ADL's unless prompted, worsening functionality per family she endorses worsening of her vision since the memory problem started. pt would like closer supervision, and adult day care they fear for her being alone Reporting poor appetite and lack of appetite, not eating as well as she was. Her reports that her appetite has been significantly improved. Sleep seems to be an issue as well at bedtime. She has improved sleep with her medications. Patient reports increased anxiety and depression. Pt's reports constant crying and anxiety. 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, given a CPAP, however, she forgets to use it and now no longer uses it after consult with neuro BP stable on lisinopril MRI with and without of the cervical spine in November 2023 Previous potential lesion seen This was essentially ruled out for neoplasm Patient has had chronic ongoing memory loss stemming from head trauma occurring about 2 years ago after she was struck in the head with woman's shoes while at [employer], causing head laceration since then symptoms have persisted She was referred to neurology at [facility] Evaluation was done in the office including comprehensive labs that revealed normal syphilis testing, vitamin D levels, methylmalonic acid, LFTs, B12, folic acid and ferritin. Furthermore MRI of the brain with Scattered small white foci of T2 bright foci are present in the white matter nonspecific but compatible with chronic microangiopathic small vessel ischemic changes that can occur with hypertension She also underwent neuro cognitive psychological evaluation as well as an sleep study She is also undergoing speech rehabilitation 2 times a week Neurology did recommend she come in and get screened for underlying depression and anxiety which can mimic memory loss Ambulatory EEG did not show any epileptic discharges or seizure like activity and no significant encephalopathy Furthermore they also recommended optimum blood pressure control 140/90 under, LDL under 100 and A1c under 7 Comprehensive labs March 2024 CBC is mostly stable Renal function electrolytes and LFTs are stable Total cholesterol 220, HDL 82, LDL 123, triglycerides 87 Hemoglobin A1c 5.7 TSH 1.8 Vitamin D 24 Health Maintenance COVID MRNA Vax -3 doses shingrix x 1, needs 2nd* Flu 2022: recieved Mammo- Scheduled May 2022, everything was normal. Pt went recently for updated mammo. Dexa- Not yet Cscope - Done November 2020-Surveillance every 10 years Examination Category Sub-Category Detail Notes Category Not es General Examination GENERAL APPEARANCE: in no ac jena distress, well developed, well nourished HEAD: normocephalic, atrau matic EYES: pupils equal, round, reactive to light and accommodation EARS: normal THROAT: clear NECK/THYROID: neck supple, full ra nge of motion, no cervical lymphadenopathy HEART: no murmurs, regular rate and rhythm, S1, S2 normal LUNGS: clear to auscultatio n bilaterally ABDOMEN: normal, bowel sounds present, soft, nontender, nondistended NEUROLOGIC: nonfocal, motor stre ngth normal upper and lower extremities, sensory exam intact SKIN: no suspicious lesion s, warm and dry EXTREMITIES: no clubbing, cyanosi s, or edema ORAL CAVITY: mucosa moist Progress Notes * TERRA RUSSODOB:[birth year] (54 yo F)Acc No.[id number]:04/08/2024 Progress Notes Patient: TERRA SON Provider: Nadiya GARCIA NP :[id number] A ge:53 Y S ex:Female Date:04/08/2024 Address:[address] [place], [place] [id number] Subjective: * Chief Complaints: * F MLA * HPI: C onstitutional: Patient is here for FMLA paperwork documentation Patient seen and examined. Full past medical history, social history, family history, allergies and current medications were reviewed and updated. Patient presented today with her daughter Tisha for follow up. Acute Concerns/Problem List: 04/08/2024 here for FMLA with daughter needing paperwork filled out for employer Updated labs reviewed HCP [facility] [place] forms on file Pt is currently attending adult day program from 8:30-2:30 5 days a week. Pt's notes that she has gained some weight recently and believes that it is due to her medications, likely the escitalopram. Was supposedly sent to neurologist at [facility], however they deferred seeing her because of the diagnosis Currently getting weekly, 11hrs [employer], needs full care. Family is currently taking care of her. per daughter forgetting to eat, takes showers multiple times a day because she forgets, Does not Do ADL's unless prompted, worsening functionality per family she endorses worsening of her vision since the memory problem started. pt would like closer supervision, and adult day care they fear for her being alone Reporting poor appetite and lack of appetite, not eating as well as she was. Her reports that her appetite has been significantly improved. Sleep seems to be an issue as well at bedtime. She has improved sleep with her medications. Patient reports increased anxiety and depression. Pt's reports constant crying and anxiety. 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, given a CPAP, however, she forgets to use it and now no longer uses it after consult with neuro BP stable on lisinopril MRI with and without of the cervical spine in November 2023 Previous potential lesion seen This was essentially ruled out for neoplasm Patient has had chronic ongoing memory loss stemming from head trauma occurring about 2 years ago after she was struck in the head with woman's shoes while at [employer], causing head laceration since then symptoms have persisted She was referred to neurology at [facility] Evaluation was done in the office including comprehensive labs that revealed normal syphilis testing, vitamin D levels, methylmalonic acid, LFTs, B12, folic acid and ferritin. Furthermore MRI of the brain with Scattered small white foci of T2 bright foci are present in the white matter nonspecific but compatible with chronic microangiopathic small vessel ischemic changes that can occur with hypertension She also underwent neuro cognitive psychological evaluation as well as an sleep study She is also undergoing speech rehabilitation 2 times a week Neurology did recommend she come in and get screened for underlying depression and anxiety which can mimic memory loss Ambulatory EEG did not show any epileptic discharges or seizure like activity and no significant encephalopathy Furthermore they also recommended optimum blood pressure control 140/90 under, LDL under 100 and A1c under 7 Comprehensive labs March 2024 CBC is mostly stable Renal function electrolytes and LFTs are stable Total cholesterol 220, HDL 82, LDL 123, triglycerides 87 Hemoglobin A1c 5.7 TSH 1.8 Vitamin D 24 Health Maintenance COVID MRNA Vax -3 doses shingrix x 1, needs 2nd* Flu 2022: recieved Mammo- Scheduled May 2022, everything was normal. Pt went recently for updated mammo. Dexa- Not yet Cscope - Done November 2020-Surveillance every 10 years. * ROS: A ll Other Systems: Review of Systems (ROS) A ll others negative except those mentioned in HPI. Objective: * Examination: G eneral Examination: GENERAL APPEARANCE: i n no acute distress, well developed, well nourished. HEAD: n ormocephalic, atraumatic. EYES: p upils equal, round, reactive to light and accommodation. EARS: n ormal. ORAL CAVITY: m ucosa moist. THROAT: c lear. NECK/THYROID: n last supple, full range of motion, no cervical lymphadenopathy. SKIN: n o suspicious lesions, warm and dry. HEART: n o murmurs, regular rate and rhythm, S1, S2 normal.? LUNGS: c lear to auscultation bilaterally. ABDOMEN: n ormal, bowel sounds present, soft, nontender, nondistended. EXTREMITIES: n o clubbing, cyanosis, or edema. NEUROLOGIC: n onfocal, motor strength normal upper and lower extremities, sensory exam intact. Assessment: * Assessment: 1. E ncephalopathy, unspecified type - G93.40 2 . D ementia with anxiety, unspecified dementia severity, unspecified dementia type - F03.94 3 . M jose loss, short term - R41.3 4 . C ognitive impairment - R41.89 5 . Hypertension, unspecified type - I10 6 . G astroesophageal reflux disease without esophagitis - K21.9 7 . A nemia, unspecified type - D64.9 8 . H yperlipidemia, unspecified hyperlipidemia type - E78.5 9 . O ther incomplete lesion at C2 level of cervical spinal cord, initial encounter - S14.152A Patient here for FMLA Acute Concerns/Problem List: 04/04/2024 FMLA paperwork was completed today Time spent 30 minutes Coordination of care, chart review, paperwork filled out and filed in EMR Of note, some information is being carried forward from prior records for informational purposes only and is being cited so that efficiency, safety and quality of the patient's care is not compromised This note was prepared using voice recognition software and direct typing Please excuse inadvertent hitch technician or typing errors, or uncorrected word substitutions Although every attempt has been made by the provider to proofread this document, occasional misspellings and typographical errors may still be present Due to the previous pandemic, and the use of personal protective equipment (PPE) This may decrease voice recognition accuracy Inadvertent hitch technician errors may occur. Plan: * Treatment: * Procedure Codes: 9 9199 NO SHOW OFFICE VISIT Billing Information: * Procedure Codes: 31883 NO SHOW OFFICE VISIT. Care Plan Details* * Electronic signature of TAMMY GARCIA on 08/07/2025 at 04:54 PM EST Sign off status: Pending * Provider: Nadiya GARCIA NP Date: 0 04/08/2024 Generated for Yin carter/Moses/Lee on: 10/08/2024 04:54 PM EST
--- NOTE | ~2025-08-07 | XR_ITS ---
EXAMINATION: XR ABDOMEN KUB CLINICAL INDICATION: one view, eval constipation COMPARISON: None available. TECHNIQUE: AP view of the abdomen. FINDINGS: T-shaped IUD projects in the midline of the pelvis. Moderate stool is seen in the rectum and right colon. There is a gas-filled loop of bowel in the central abdomen, likely transverse or sigmoid colon. XR/XR KUB IMPRESSION: Moderate stool in the right colon and rectum Electronically signed by: Lewis Becerril MD 08/07/2025 04:50 PM [facility]
[2025-08-07 13:05] VITALS: BP 143/71; PULSE 80; RESP 16; TEMP 36.6; O2SAT 100; BMI 29.4
--- NOTE | 2025-08-07 13:06 | ED.GENADULT ---
HPI - General Adult General Chief complaint: Behavioral Concerns Stated complaint: Dementia Evaluation Time Seen by Provider: 08/07/25 16:06 Source: patient, family and old records reviewed Mode of arrival: ambulatory Limitations: no limitations History of Present Illness ED Provider: KANDICE HARE narrative: This is a 54-year-old female with past medical history of early-onset dementia with symptoms starting about 4 years ago she is care for by her family. She has had recent med changes to help with her symptoms including an increase in Namenda and Aricept as well as trazodone. She takes Risperdal 0.5 mg twice a day. Her daughter is here they note for the last 2 weeks she has been incredibly agitated she has been hitting them and biting them which is unusual. They can not think of any event that occurred they have not notice any other medical things she is not allowing them to do her ADLs. They are hoping that if there is nothing medical going on that we can help evaluate for agitation and behavioral control in the form of kayley psych. complaint: Agitation Onset (ago): week(s) (2) Radiation: non-radiation Severity: moderate Relieving factors: none Exacerbating factors: none Associated symptoms: denies other symptoms Treatments prior to arrival: none Related Data Home Medications ?Medication ?Instructions ?Recorded ?Confirmed ferrous fumarate 324 mg (106 mg 324 mg PO DIRECTED 11/20/20 08/07/25 iron) tablet pantoprazole 40 mg tablet,delayed 40 mg PO DAILY 11/20/20 08/07/25 release escitalopram oxalate 5 mg tablet 20 mg PO DAILY 09/08/21 08/07/25 (Lexapro) acetaminophen 325 mg tablet 325 mg PO QID PRN Pain 08/07/25 08/07/25 ascorbic acid (vitamin C) 500 mg 500 mg PO DAILY 08/07/25 08/07/25 chewable tablet (Vitamin C) bisacodyl 5 mg tablet,delayed 10 mg PO NEEDED 08/07/25 08/07/25 release (Dulcolax (bisacodyl)) buspirone 5 mg tablet 5 mg PO TID 08/07/25 08/07/25 donepezil 10 mg tablet 10 mg PO DAILY@0730 08/07/25 08/07/25 lisinopril 5 mg tablet 5 mg PO DAILY 08/07/25 08/07/25 loratadine 10 mg tablet 10 mg PO DAILY 08/07/25 08/07/25 memantine 5 mg tablet 5 mg PO BID 08/07/25 08/07/25 mirtazapine 15 mg tablet 15 mg PO BEDTIME 08/07/25 08/07/25 trazodone 50 mg tablet 75 mg PO BEDTIME 08/07/25 08/07/25 Previous Rx's ?Medication ?Instructions ?Recorded olanzapine 5 mg tablet 5 mg PO BID 30 days #60 tabs 08/10/25 olanzapine 5 mg tablet 5 mg PO Q6H PRN agitation #14 tabs 08/10/25 Allergies Allergy/AdvReac Type Severity Reaction Status Date / Time No Known Allergies Allergy Verified 08/07/25 13:07 Review of Systems Review of Systems: Yes all other systems are reviewed and are negative [facility] Past Medical History Attestation statement: The following information was validated with the patient. Source: old records reviewed Medical History HTN (hypertension) Surgical History Hx of appendectomy Social History Social History Alcohol intake: current Alcohol intake frequency: holidays/special occasions only Smoked in Last 30 Days: No Use of substances other than those prescribed or required for medical reasons: No Advance Directives: No Advance Directives Information Provided: No Do you have a plan to hurt others: No Plan Gender identity: Female Physical Exam ED Vital Signs: Vital Signs - 24 hr 08/09/25 16:18 08/10/25 01:31 08/10/25 02:20 Temperature 97.7 F Pulse Rate 90 76 Respiratory Rate 16 16 Blood Pressure 97/52 L 104/42 L Pulse Oximetry 97 Oxygen Delivery Method Room Air 08/10/25 06:20 08/10/25 07:58 08/10/25 08:00 Temperature 97.7 F 97.6 F Pulse Rate 83 85 Respiratory Rate 16 18 Blood Pressure 135/56 L 131/74 131/74 Pulse Oximetry 99 98 Oxygen Delivery Method Room Air 08/10/25 09:51 Temperature Pulse Rate 103 H Respiratory Rate 18 Blood Pressure 135/78 Pulse Oximetry 94 Oxygen Delivery Method Room Air BMI result Body Mass Index 29.4 Appearance: Alert. At her baseline she is restless but family is assisting. No acute distress. Eyes: Pupils equal, round and reactive to light. ENT: Pharynx normal. Atraumatic Neck: Normal inspection. Neck supple. CVS: Normal heart rate and rhythm. Pulses normal. Respiratory: No respiratory distress. Breath sounds normal. Abdomen: No grimace to palpation Skin: Skin warm and dry. Normal skin color. Extremities: No lower extremity edema. Neuro: She is confused at baseline she is moving all extremities equally, she can not participate in the cranial nerve exam Course Course Course Narrative: RME: 54 year old female history of progressive dementia brought by family members due to increasing aggression towards family members. Patient has a tacking family members biting. They are also looking for placement. Reevaluation(s) Reevaluation #1: 5:05 PM 08/07/2025 (KANDICE MENDOZA): There is mild constipation I am going to start her on Colace and senna Care team recommend psych consult family is aware we are pending that tomorrow I did start her on a dose of Seroquel tonight for sleep and agitation Reevaluation #2: DR. Reyes's progress note: 08/08/2024: 08:00 VSS, patient is agitated require IM Zyprexa to come down, await for care team evaluation and disposition, Continue with physician observation. DR. Reyes's progress note: 08/09/2025: 11:00. VSS, no issues reported by nurse overnight, care team evaluation is appreciated and bed search is underway, continue with physician observation. 11:19 AM 08/10/2025 (Dr. Francisco Peñaloza): Patient will be going home with family 12:00 Medications Administered Generic Name Dose Route Start Last Admin Trade Name Freq PRN Reason Stop Dose Admin Ascorbic Acid 500 mg 08/08/25 09:00 08/10/25 08:00 Ascorbic Acid 500 Mg Tablet PO 500 mg DAILY MITZI Administration Buspirone HCl 5 mg 08/07/25 21:00 08/10/25 08:00 Buspirone Hcl 5 Mg Tablet PO 5 mg TID MITZI Administration Docusate Sodium 100 mg 08/08/25 09:00 08/10/25 08:00 Docusate Sodium 100 Mg Capsule PO 100 mg BID MITZI Administration Donepezil HCl 10 mg 08/08/25 07:30 08/10/25 08:02 Donepezil Hcl 10 Mg Tablet PO 10 mg DAILY@0730 MITZI Administration Escitalopram Oxalate 20 mg 08/08/25 09:00 08/10/25 07:57 Escitalopram Oxalate 20 Mg Tablet PO 20 mg DAILY MITZI Administration Ferrous Sulfate 324 mg 08/08/25 09:00 08/10/25 07:57 Ferrous Sulfate 324 Mg Tablet. PO 324 mg DAILY MITZI Administration Lisinopril 5 mg 08/08/25 09:00 08/10/25 07:58 Lisinopril 5 Mg Tablet PO 5 mg DAILY MITZI Administration Protocol Loratadine 10 mg 08/08/25 09:00 08/10/25 08:01 Loratadine 10 Mg Tablet PO 10 mg DAILY MITZI Administration Memantine 5 mg 08/07/25 21:00 08/10/25 07:57 Memantine Hcl 5 Mg Tablet PO 5 mg BID MITZI Administration Olanzapine 5 mg 08/08/25 21:00 08/10/25 08:00 Olanzapine 5 Mg Tablet PO 5 mg BID MITZI Administration Omeprazole 20 mg 08/08/25 06:30 08/10/25 06:30 Omeprazole 20 Mg Capsule. PO 20 mg DAILY@0630 MITZI Administration Trazodone HCl 75 mg 08/07/25 21:00 08/09/25 20:32 Trazodone Hcl 25 Mg Halftab PO 75 mg BEDTIME MITZI Administration Discontinued Medications Generic Name Dose Route Start Last Admin Trade Name Lukeq PRN Reason Stop Dose Admin Docusate Sodium 100 mg 08/07/25 16:54 08/07/25 17:31 Docusate Sodium 100 Mg Capsule PO 08/07/25 16:55 100 mg ONCE ONE Administration Melatonin 9 mg 08/09/25 03:20 08/09/25 03:26 Melatonin 3 Mg Tablet PO 08/09/25 03:21 9 mg ONCE ONE Administration Mirtazapine 15 mg 08/07/25 21:00 08/07/25 20:05 Mirtazapine 15 Mg Tablet PO 15 mg BEDTIME MITZI Administration Olanzapine 10 mg 08/07/25 16:16 08/07/25 16:43 Olanzapine Odt 10 Mg Tab.Rapdis TRANSLINGU 08/07/25 16:17 10 mg ONCE ONE Administration Olanzapine 10 mg 08/08/25 06:32 08/08/25 06:37 Olanzapine Odt 10 Mg Tab.Rapdis TRANSLINGU 08/08/25 06:33 10 mg ONCE ONE Administration Olanzapine 10 mg 08/08/25 07:09 08/08/25 07:25 Olanzapine 10 Mg Vial IM 08/08/25 07:10 10 mg ONCE ONE Administration Olanzapine 10 mg 08/10/25 07:00 08/10/25 07:00 Olanzapine 10 Mg Vial IM 08/10/25 07:01 10 mg ONCE ONE Administration Quetiapine Fumarate 25 mg 08/07/25 18:42 08/07/25 18:46 Quetiapine Fumarate 25 Mg Tablet PO 08/07/25 18:43 25 mg ONCE ONE Administration Risperidone 0.5 mg 08/07/25 21:00 08/08/25 07:16 Risperidone 0.5 Mg Tablet PO 0.5 mg BID MITZI Administration Senna 8.6 mg 08/07/25 16:54 08/07/25 17:31 Sennosides 8.6 Mg Tablet PO 08/07/25 16:55 8.6 mg DAILY ONE Administration Trazodone HCl 75 mg 08/09/25 03:20 08/09/25 03:26 Trazodone Hcl 25 Mg Halftab PO 08/09/25 03:21 75 mg ONCE ONE Administration Medical Decision Making Medical Decision Making MDM Narrative: 54-year-old female with past medical history of dementia and hypertension who resides at home with her family. She is having increasing agitation and aggression towards family for 2 weeks. There is no real medical precipitating event or trauma they can think of. She did have recent changes in her Alzheimer's medications. At this time I am going to give her a dose of Zyprexa and obtain basic labs, UA, KUB for constipation Differential Diagnosis Differential Diagnoses: The differential diagnosis associated with the presentation includes Dementia, constipation, UTI Admission/Observation Consideration of admission/observation: Escalation of care including admission/observation considered Physician observation started at 17:00 pending care team Consult Healthcare Provider Management of the patient was discussed with: Behavioral Health Provider Lab Data MDM Lab Attestation statement: I reviewed the patient's lab results. 08/07/25 14:25 08/07/25 14:25 Labs: Lab Results 12/23/25 12/23/25 12/23/25 Range/Units 14:25 14:31 17:35 WBC 9.5 (4.8-10.8) X10*3/uL RBC 3.96 L (4.20-5.50) X10*6/uL Hgb 11.0 L (12.0-16.0) g/dl Hct 34.1 L (37.0-47.0) % MCV 86.1 (80.0-98.0) fL MCH 27.8 (27.0-33.0) pg MCHC 32.3 (31.0-35.0) g/dl RDW 13.0 (11.0-16.0) % Plt Count 295 (160-400) X10*3/uL MPV 9.6 (9.4-12.3) fL Immature Gran % (Auto) 0.3 (0.0-0.4) % Neut % (Auto) 70.9 (45-73) % Lymph % (Auto) 20.9 (20-40) % Zapata % (Auto) 5.9 (2-11) % Eos % (Auto) 1.6 (0-4) % Baso % (Auto) 0.4 (0-2) % Lymph # (Auto) 2.0 (1.2-4.9) X10*3/uL Zapata # (Auto) 0.6 (0.1-1.2) X10*3/uL Eos # (Auto) 0.2 (0.0-0.4) X10*3/uL Baso # (Auto) 0.0 (0.0-0.2) X10*3/uL Abs Immat Gran (auto) 0.03 (0.00-0.03) X10*3/uL Absolute Neuts (auto) 6.7 (2.0-8.3) x10*3/uL Absolute Nucleated RBC 0.000 (0.0-0.012) X10*3/uL Nucleated RBC % (auto) 0.0 (0.0-0.2) /100WBC Sodium 143 (135-145) mmol/L Potassium 3.7 (3.3-5.1) mmol/L Chloride 108 (96-108) mmol/L Carbon Dioxide 28 (22-29) mmol/L Anion Gap 11 L (12-20) BUN 16 (9-16) mg/dL Creatinine 0.75 (0.5-1.4) mg/dL Estim Creat Clear Calc 88.6 Estimated GFR > 60 Random Glucose 120 H (60-115) mg/dL Calcium 9.0 (8.4-10.2) mg/dL Total Bilirubin 0.2 (0.0-1.0) mg/dL AST 14 (5-31) U/L ALT 17 (0-31) U/L Alkaline Phosphatase 74 (39-117) U/L Ammonia 27 (13-55) umol/L Total Protein 7.3 (6.5-8.0) g/dL Albumin 4.4 (3.5-5.0) g/dL Urine Color Straw Urine Appearance Hazy Urine pH 6.0 (5.0-9.0) Ur Specific Eaton 1.025 (1.005-1.025) Urine Protein Trace (Neg-Trace) mg/dL Urine Glucose (UA) Negative (Negative) mg/dL Urine Ketones Trace (Negative) mg/dL Urine Blood Negative (Negative) Urine Nitrite Negative (Negative) Ur Leukocyte Esterase Trace H (Negative) Urine RBC 0-2 (0-2) /HPF Urine WBC 0-5 (0-5) /HPF Ur Squamous Epith Cells 11-20 (0-2) /HPF Urine Bacteria 1+ (None Seen) Hyaline Casts 0-2 (0-2) /LPF Urine Opiates Screen Not Detected (Not Detect) Ur Buprenorphine Scrn Not Detected (Not Detect) ng/mL Ur Oxycodone Screen Not Detected (Not Detect) ng/mL Urine Methadone Screen Not Detected (Not Detect) ng/mL Urine Fentanyl Screen Not Detected (Not Detect) Ur Barbiturates Screen Not Detected (Not Detect) Ur Phencyclidine Scrn Not Detected (Not Detect) Ur Amphetamines Screen Not Detected (Not Detect) U Benzodiazepines Scrn Not Detected (Not Detect) Urine Cocaine Screen Not Detected (Not Detect) U Marijuana (THC) Screen Not Detected (Not Detect) Ethyl Alcohol < 10 mg/dL Influenza Type A (PCR) NEGATIVE (Negative) Influenza Type B (PCR) NEGATIVE (Negative) RSV RNA Qual (PCR) NEGATIVE (Negative) SARS-CoV-2 RNA (RT-PCR) NEGATIVE (Negative) Independent Interpretation I performed an independent interpretation of an: Plain X-Ray (Mild constipation) Radiology Impression Discussion of test interpretation with radiology: I have reviewed the radiologist's reading. Independent Historian Clinical information obtained from an independent historian. History obtained from or confirmed by: Other (Daughter) External Record Review External record reviewed: Outpatient record Discharge Plan Discharge Clinical Impression: Constipation, Dementia with behavioral disturbance, Frontotemporal dementia, Advanced dementia Instructions: Constipation (ED), Dementia (ED) Additional Instructions: Return back home with hospice services Discharge risperidone start olanzapine 5 mg twice a day and add olanzapine 5 mg orally every 6 hours as needed for agitation if tolerated it can increase scheduled olanzapine to 10 mg twice a day Outpatient follow up You were seen in our Emergency Department today for treatment of a behavioral health issue. It is important after your visit that you follow up with either your behavioral health provider or a primary care doctor within 7 days.? If you have trouble finding a therapist you can reach out to [address] [phone] [employer] Suicide and Crisis Lifeline can be reached 7 days a week 24 hours a day.? Call [phone] to speak with someone.? Return for any worsening symptoms or concerns such as thoughts of self harm or harm to others. Please call 911 if you feel your mental health is worsening.? Prescriptions: New olanzapine 5 mg tablet 5 mg PO BID 30 Days Qty: 60 0RF olanzapine 5 mg tablet 5 mg PO Q6H PRN (Reason: agitation) Qty: 14 0RF Discontinued risperidone 0.5 mg tablet 0.5 mg PO BID No Action bisacodyl [Dulcolax (bisacodyl)] 5 mg tablet,delayed release (DR/EC) 10 mg PO NEEDED buspirone 5 mg tablet 5 mg PO TID trazodone 50 mg tablet 75 mg PO BEDTIME donepezil 10 mg tablet 10 mg PO DAILY@0730 ascorbic acid (vitamin C) [Vitamin C] 500 mg tablet,chewable 500 mg PO DAILY lisinopril 5 mg tablet 5 mg PO DAILY mirtazapine 15 mg tablet 15 mg PO BEDTIME memantine 5 mg tablet 5 mg PO BID loratadine 10 mg tablet 10 mg PO DAILY acetaminophen 325 mg Tablet 325 mg PO QID PRN (Reason: Pain) ferrous fumarate 324 mg (106 mg iron) tablet 324 mg PO DIRECTED pantoprazole 40 mg tablet,delayed release (DR/EC) 40 mg PO DAILY escitalopram oxalate [Lexapro] 5 mg tablet 20 mg PO DAILY Referrals: Samara Thompson NP [Primary Care Provider, Family Practice] Print Language: Yi
[2025-08-07 14:37] LABS: MANUAL DIFF FLAG NO
[2025-08-07 14:38] LABS: Hematocrit 34.1 % (37.0-47.0); Hemoglobin 11.0 g/dl (12.0-16.0); Imm Gran Abs Auto 0.03 X10*3/uL (0.00-0.03); Imm Gran Pct Auto 0.3 % (0.0-0.4); Lymphocytes Absolute Auto 2.0 X10*3/uL (1.2-4.9); Mean Corpuscular HGB Conc 32.3 g/dl (31.0-35.0); Mean Corpuscular Hemoglobin 27.8 pg (27.0-33.0); Mean Corpuscular Volume 86.1 fL (80.0-98.0); NRBC Abs Auto 0.000 X10*3/uL (0.0-0.012); NRBC Pct Auto 0.0 /100WBC (0.0-0.2); Platelet Count 295 X10*3/uL (160-400); Red Blood Count 3.96 X10*6/uL (4.20-5.50); White Blood Count 9.5 X10*3/uL (4.8-10.8)
[2025-08-07 14:46] LABS: Ammonia 27 umol/L (13-55)
[2025-08-07 14:50] LABS: Cannabinoid Screen Urine Not Detected (Not Detect)
[2025-08-07 14:58] LABS: Alanine Aminotransferase 17 U/L (0-31); Albumin Level 4.4 g/dL (3.5-5.0); Alkaline Phosphatase 74 U/L (39-117); Anion Gap 11 (12-20); Aspartate Amino Transferase 14 U/L (5-31); Blood Urea Nitrogen 16 mg/dL (9-16); Calcium 9.0 mg/dL (8.4-10.2); Carbon Dioxide 28 mmol/L (22-29); Chloride 108 mmol/L (96-108); Creatinine Clr Calc Pharmacy 88.6; Estimated Glomerular Filt Rate > 60; Potassium 3.7 mmol/L (3.3-5.1); Sodium 143 mmol/L (135-145); Total Protein 7.3 g/dL (6.5-8.0)
[2025-08-07 16:15] LABS: Resp Syncy Virus RNA Qual PCR NEGATIVE (Negative); SARS COV2 PCR INHOUSE NEGATIVE (Negative)
[2025-08-07 16:41] VITALS: BP 125/62; PULSE 77; RESP 14; TEMP 36.8; O2SAT 99
[2025-08-07] MEDS: OLANZapine ODT 10 MG TAB.RAPDIS TRANSLINGU (16:43)
--- OUTSIDE RECORDS SUMMARY | 2025-08-07 16:54 | XMS_ITS | Clinical Summary ---
Author Organization [facility] it Address [address] [place] [address] Care Team Providers Care Retention Manager Name Role Phone Name, Harvey CARDOZO Primary Care Provider [phone] Medications lisinopriL (PRINIVIL,ZESTR IL) 10 mg tablet [...] 11/11/2023 Active memantine (NAMENDA) 5 mg tablet TAKE 1 TABLET BY MOUTH EVERY DAY 30 tablet 05/14/2025 Active Surgical History Surgery Date Site/Laterality Comments [...] on file Sexual Orientation Not on file Last Filed Vital Signs [...] Last Done Comments Breast Cancer Screening 1969 Colorectal Cancer Screening: Colonoscopy 1969 DTaP,Tdap,and Td Vaccines (1 - Tdap) 1988 Hepatitis B Vaccines (1 of 3 - 19+ 3-dose series) 1988 Cervical Cancer Screening: P ap Smear 1990 Pneumococcal Vaccine: 50+ Ye ars (1 of 1 - PCV) 2019 Zoster Vaccines (1 of 2) 2019 HIV Screening 07/19/2022 Hepatitis C Screening 07/19/2022 Social Influencers of Health Screening 07/19/2022 Depression Screening 08/16/2024 COVID-19 Vaccine (1 - 2024-2 6 season) 2025 Influenza Vaccine (#1) 2025 RSV Immunization Adult Patie nts (1 - 1-dose 75+ series) 2044 HIB Vaccines Aged Out No longer eligi [...] age to complete this topic Care Teams Retention Manager Relationship Specialty Start Date End Date Name, MD Harvey [address] [place], [place] PCP - General 12/20/07
--- OUTSIDE RECORDS SUMMARY | 2025-08-07 16:54 | XMS_ITS | Clinical Summary ---
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 Name Role Phone Mikayla Figueroa MD Primary Care Provider [phone] Social History Tobacco Use Types Packs/Day Years [...] 2019 ZOSTER VACCINES (1 of 2) 2019 INFLUENZA VACCINE (#1) 2025 COVID-19 VACCINE ( - 2024-2 6 season) 2025 RSV VACCINE (1 - 1-dose 75+ series) 2044 HEPATITIS A VACCINES Aged Out No long [...] topic Medical Devices Not on file Insurance [place] [address] [employer] [place] [address] [employer] Care Teams 4Th Grade Math Teacher Relationship Specialty Start Date End Date Mikyala Figueroa MD [address] [place] [address] [address] [place] [address] PCP - General 05/10/23 Additional Source Comments The information contained in this document represents components of the legal health record. It is not the complete legal health record.[facility]
--- OUTSIDE RECORDS SUMMARY | 2025-08-07 16:54 | XMS_ITS | Clinical Summary ---
Author Organization [facility] Prior to 01/13/[address] [place] [address] Care Team Providers Care Endoscopy Technician Name Role Phone Karley Figueroa MD Primary Care Provider [phone] Allergies No known active allergies Medications Medication [...] age to complete this topic Care Teams Endoscopy Technician Relationship Specialty Start Date End Date Karley Figueroa MD [address] [place] [id number] PCP - General Internal Medicine 11/22/23
--- OUTSIDE RECORDS SUMMARY | 2025-08-07 16:54 | XMS_ITS | Patient Health Record ---
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 Name Role Phone CLAUDIA GARCIA Unavailable [phone] Allergies Allergen (clinical drug ingredient) Drug/Non Drug Allergy documented on EMR Reaction Allergy Type Onset Date Status Seasonale Unknown Drug Allergy Active Pollen Pollen Unknown Allergy Active Reason For Referral No Information Medications Medication SIG (Take, Route, Frequency, Duration) Notes Start Date End Date Status Escitalopram Oxalate 10 MG Tablet TAKE 1 TABLET BY MOUTH EVERY DAY; Duration: 90 Active Pantoprazole Sodium 40 MG Tablet Delayed Release TAKE 1 TABLET BY MOUTH EVERY DAY; Duration: 90 Active traZODone HCl 50 MG Tablet TAKE 1/2 TO 1 TABLET BY MOUTH AT BEDTIME NEEDED; Duration: 90 Active Vraylar 1.5 MG Capsule TAKE 1 CAPSULE BY MOUTH EVERY DAY FOR 90 DAYS; Duration: 30 Active Mirtazapine 15 MG Tablet 1 tablet at bed time Orally Once a day; Duration: 30 days Active Cephalexin 500 MG Capsule 1 capsule Oral ly three times a day; Duration: 7 days Active Ferretts 325 (106 Fe) MG Tablet TAKE 1 TABLET BY MOUTH EVERY DAY; Duration: 90 Active Vitamin C 500 MG Capsule TAKE 1 CAPSULE BY MOUTH EVERY DAY FOR 90 DAYS; Duration: 90 Active Memantine HCl 5 MG Tablet 1 tablet Orall y Once a day; Duration: 30 days Active Social History Tobacco Use: Social History Observation Description Date Details (start date - stop date) Never Smoker NA - NA Social History Drugs/Alcohol: Social Info Question Answer Notes Drugs Have you used drugs other than those for medical reasons in the past 12 months? No Tobacco Use: Social Info Question Answer Notes Tobacco Use/Smoking Are you a nonsmoker Additional Details Category Social Info Options Details Drugs/Alcohol: Do you smoke marijuana? De nies Do you drink alcohol? 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, initial encounter (S14.152A) Active confirmed Problem Adult health examination (802473400) Encounter for general adult medical examination without abnormal findings (Z00.00) Active confirmed Problem Diabetes mellitus screening (028383527) Encounter for screening for diabetes mellitus (Z13.1) Active confirmed Problem Endocrine/metabolic screening (226143389) Encounter for screening for other suspected endocrine disorder (Z13.29) Active confirmed Problem Prediabetes (555221043) Prediabetes (R73.03) Active confirmed Problem Colon cancer screening (608029053) Colon cancer screening (Z12.11) Active confirmed Problem Hyperlipidaemia (78770557) Hyperlipidemia, unspecified hyperlipidemia type (E78.5) Active confirmed Problem Hypothyroidism (82037093) Hypothyroidism, unspecified type (E03.9) Active confirmed Problem Anemia (228556274) Anemia, unspecified type (D64.9) Active confirmed Problem Screening for malignant neoplasm of cervix (121905118) Pap smear for cervical cancer screening (Z12.4) Active confirmed Problem Essential hypertension (67727488) Hypertension, unspecified type (I10) Active confirmed Problem Gastroesophageal reflux disease without esophagitis (705656367) Gastroesophageal reflux disease without esophagitis (K21.9) Active confirmed Problem Amnesia (65571150) Memory loss, short term (R41.3) Active confirmed Problem Exposure to acute respiratory syndrome coronavirus 2 (686862026) Contact with and (suspected) exposure to COVID-19 (Z20.822) Active confirmed Problem Acute pharyngitis (529729824) Acute sore throat (J02.9) Active confirmed Problem Cognitive impairment (493087368) Cognitive impairment (R41.89) Active confirmed Problem Dementia with anxiety, unspecified dementia severity, unspecified dementia type (F03.94) Active confirmed Problem Disorder of brain (54120502) Encephalopathy, unspecified type (G93.40) Active confirmed Encounters Encounter Location Date Provider Diagnosis [facility] [address] [facility] [address] [place] [address] 08/07/2024 CLAUDIA SHAIKHT [facility] [address] [facility] [address] [place] [address] 09/12/2024 CLAUDIA SHAIKHT [facility] [address] [address] 06/15/2025 CLAUDIA SHAIKHT [facility] [address] [facility] [address] [place] [address] 08/07/2024 CLAUDIA SHAIKHT [facility] [address] [address] 08/18/2024 CLAUDIA SHAIKHT [facility] [address] [facility] [address] [place] [address] 08/25/2024 CLAUDIA SHAIKHT [facility] [address] [address] 08/29/2024 CLAUDIA GARCIA Plan Of Treatment Pending Test Test Name Order Date 25OH VITAMIN D 03/20/2021 25OH VITAMIN D 05/14/2022 25OH VITAMIN D 10/29/2021 CBC (COMPLETE BLOOD COUNT) 10/28/2020 CBC (COMPLETE BLOOD COUNT) 10/29/2021 CBC (COMPLETE BLOOD COUNT) 05/14/2022 CBC (COMPLETE BLOOD COUNT) 03/20/2021 COMPREHENSIVE METABOLIC PANEL 05/14/2022 COMPREHENSIVE METABOLIC PANEL 10/29/2021 COMPREHENSIVE METABOLIC PANEL 03/20/2021 HEMOGLOBIN A1C 10/29/2021 HEMOGLOBIN A1C 05/14/2022 LIPID PANEL 05/14/2022 LIPID PANEL 03/20/2021 LIPID PANEL 10/29/2021 TSH 03/20/2021 TSH 05/14/2022 TSH WITH REFLEX TO FT4 10/29/2021 URINALYSIS W/REFLEX CULTURE 10/29/2021 LIPID PANEL, STANDARD 11/11/2023 COMPREHENSIVE METABOLIC PANEL 11/11/2023 CBC (INCLUDES DIFF/PLT) 11/11/2023 URINALYSIS, COMPLETE 11/11/2023 HEMOGLOBIN A1c 11/11/2023 TSH 11/11/2023 VITAMIN D,25-OH,TOTAL,IA 11/11/2023 COMPLETE URINALYSIS 05/14/2022 COMPLETE URINALYSIS 03/20/2021 Future Test Test Name Order Date 25OH VITAMIN D 08/26/2020 CBC (COMPLETE BLOOD COUNT) 08/26/2020 COMPREHENSIVE METABOLIC PANEL 08/26/2020 FERRITIN 08/26/2020 IRON & TIBC 08/26/2020 LIPID PANEL 08/26/2020 T4, FREE 08/26/2020 TSH 08/26/2020 VITAMIN B12 08/26/2020 COMPLETE URINALYSIS 08/26/2020 Insurance Providers Payer Name Payer Address Payer Phone Subscriber Number Group Number Insured Name Patient Relationship to Insured Coverage Start Date Coverage End Date [employer] [address] [place] [address] [phone] [id number] TERRA RUSSO Self - patient is the insured Medical (General) History Medical History History ICD Code hypertension acid reflux Surgical History Surgery Date(Month/Year) appendectomy 19year tubal ligation 1995
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
--- NOTE | 2025-08-07 17:40 | PHA.MEDREC ---
Pharmacy Consult ? Medication Reconciliation Pharmacy has reviewed the medication reconciliation completed completed by nursing.
[2025-08-07 17:43] LABS: Appearance Urine Hazy; Glucose Urine UA Negative (Negative); PH 6.0 (5.0-9.0); Specific Gravity - Urine 1.025 (1.005-1.025); UMIC TRIGGER UACC YES
--- NOTE | 2025-08-07 19:33 | PC.NURSE ---
this RN assumed care of this pt @1900 pt noted to be laying in hospital bed, family at the bedside, no apparent distress noted at this time.
[2025-08-07] MEDS: traZODone HCL 25 MG HALFTAB 75 MG PO (20:04)
--- NOTE | 2025-08-07 20:10 | PC.NURSE ---
pt medicated per MAR, family at the bedside at this time
--- NOTE | 2025-08-07 20:45 | PC.NURSE ---
Addendum entered by Troy Wade RN 08/07/25 22:34: chair alarm placed on pt for safety Original Note: @this time pt family stated pt starting to fall asleep, family heading home @approximately 2100 pt noted to be attempting to climb out of hospital stretcher, bed sheets noticeably wet w/ urine, pt assisted to the commode, changed into fresh hospital attire, fresh bed sheets provided for pt and pt assisted back into bed, pt noted to be essentially calm and cooperative w/ minor attempt at hitting staff, pt was able to be verbally redirected @2114 pt noted to be attempting to climb out of bed again, redirected back to bed, pt tearful @2129 pt noted to have eyes closed, respirations even and unlabored
[2025-08-08 05:41] VITALS: BP 150/61; PULSE 66; RESP 14; TEMP 36.6; O2SAT 100
[2025-08-08] MEDS: OLANZapine ODT 10 MG TAB.RAPDIS TRANSLINGU (06:37)
--- NOTE | 2025-08-08 06:39 | PC.NURSE ---
pt woke up agitated/attempting to get OOB w/o assistance. pt noted to be incontinent of urine. bed change completed. pericare performed. pt agitated/aggressive towards staff during interaction. attempting to hit staff. pt able to be de-escalated/assisted back into bed. pt repositioned to comfort. provider notified/aware of event. pt medicated per provider order. effectiveness pending. chair alarm remains in place. pt otherwise continues to pend psychiatry consult at this time. plan of care ongoing. call campa placed within reach.
[2025-08-08 07:16] VITALS: BP 125/50
[2025-08-08] MEDS: OLANZapine 10 MG VIAL IM (07:25)
--- NOTE | 2025-08-08 07:46 | PC.NURSE ---
pt continues to remain increasingly agitated/aggressive towards staff despite previous medication administration. pt hitting/scratching. attempting to get OOB w/o assistance/placing legs in side rails despite being a high fall risk. seizure pads in place for safety precautions. provider notified/aware. pt chemically restrained w/ 10mg of Zyprexa IM at 0725. see restraint paperwork for further details. additional staff remains bedside for assistance at this time. plan of care ongoing.
[2025-08-08 08:00] VITALS: BP 125/53; PULSE 68; RESP 18; O2SAT 98
[2025-08-08 08:27] VITALS: BP 137/56; PULSE 69; RESP 15; O2SAT 99
[2025-08-08] MEDS: Ferrous Sulfate 324 MG TABLET.DR PO (08:52)
--- NOTE | 2025-08-08 08:55 | PC.NURSE ---
patient transitioned to hospital bed to promote comfort at this time. bed alarm/chair alarm now in place for safety precautions. plan of care ongoing. call campa placed within reach.
--- NOTE | 2025-08-08 09:55 | PC.NURSE ---
patient's and daughters bedside. update provided to family members. pt continues to pend psych consult at this time. bed alarm/chair alarm in place for safety precautions. plan of care ongoing. call campa placed within reach.
--- NOTE | 2025-08-08 12:18 | P.CNPS_ITS ---
History of Present Illness Date of Service: 09/19/2024 Chief Complaint: Dementia Evaluation Reason for Consult: combative behaviors Sources of Information: patient interviewed, chart reviewed and crisis/core team assessment reviewed HPI Narrative: Mrs. George 54 year-old with early onset FTD, now oriented only to self at baseline. Pt was brought by and daughter due to pt presenting with increased combative behaviors. Daughter reports pt has been sratching and attempting to bit them sometimes without being provoke and other times when direct care is being provided. Pertienent labs completed in the ED include CBC with chronic and stable normocytic anemia (). CMP without electrolyte abnormalities, BUN 16, Cr 0.75, creatinine clearance 88.6. UA shows leukocytes, 1+bacteria. Utox negative. Pt seen in the ED with both and daughter by her side. Pt received OLanzapine 10mg IM due to attempting to scratch and bit staff and family. She was asleep when seen. Daughter provides all information- daughter, who is also HCP, reports that pt has been more combative with direct care and also goes to her or her father and may attempt to swing at them. Daughter reports she just wanted to make sure that nothing else was affecting her behaviors including underlying medical condition. Daughter reports pt has been seeing Patti Temple, applied psychology professor and she has been prescribing: risperidone 0.5mg po BID, buspar 5mg po TID. Pt also on aricept 10mg po daily and namenda 10mg po BID. [facility] Medical History HTN (hypertension) Surgical History Hx of appendectomy Diagnostics Vital Signs (24Hr): Vital Signs - 24 hr 08/07/25 13:05 08/07/25 16:41 08/08/25 05:41 Temperature 97.9 F 98.2 F 97.8 F Pulse Rate 80 77 66 Respiratory Rate 16 14 14 Blood Pressure 143/71 H 125/62 150/61 H Pulse Oximetry 100 99 100 Oxygen Delivery Method Room Air Room Air Room Air 08/08/25 07:16 08/08/25 08:00 08/08/25 08:27 Temperature Pulse Rate 68 69 Respiratory Rate 18 15 Blood Pressure 125/50 L 125/53 L 137/56 L Pulse Oximetry 98 99 Oxygen Delivery Method Room Air Room Air BMI result Body Mass Index 29.4 Labs 08/07/25 14:25 08/07/25 14:25 Labs: Laboratory Results - last 48 hr 08/07/25 08/07/25 08/07/25 14:25 14:31 17:35 WBC 9.5 RBC 3.96 L Hgb 11.0 L Hct 34.1 L MCV 86.1 MCH 27.8 MCHC 32.3 RDW 13.0 Plt Count 295 MPV 9.6 Immature Gran % (Auto) 0.3 Neut % (Auto) 70.9 Lymph % (Auto) 20.9 [place] % (Auto) 5.9 Eos % (Auto) 1.6 Baso % (Auto) 0.4 Lymph # (Auto) 2.0 [place] # (Auto) 0.6 Eos # (Auto) 0.2 Baso # (Auto) 0.0 Abs Immat Gran (auto) 0.03 Absolute Neuts (auto) 6.7 Absolute Nucleated RBC 0.000 Nucleated RBC % (auto) 0.0 Sodium 143 Potassium 3.7 Chloride 108 Carbon Dioxide 28 Anion Gap 11 L BUN 16 Creatinine 0.75 Estim Creat Clear Calc 88.6 Estimated GFR > 60 Random Glucose 120 H Calcium 9.0 Total Bilirubin 0.2 AST 14 ALT 17 Alkaline Phosphatase 74 Ammonia 27 Total Protein 7.3 Albumin 4.4 Urine Color Straw Urine Appearance Hazy Urine pH 6.0 Ur Specific [place] 1.025 Urine Protein Trace Urine Glucose (UA) Negative Urine Ketones Trace Urine Blood Negative Urine Nitrite Negative Ur Leukocyte Esterase Trace H Urine RBC 0-2 Urine WBC 0-5 Ur Squamous Epith Cells 11-20 Urine Bacteria 1+ Hyaline Casts 0-2 Urine Opiates Screen Not Detected Ur Buprenorphine Scrn Not Detected Ur Oxycodone Screen Not Detected Urine Methadone Screen Not Detected Urine Fentanyl Screen Not Detected Ur Barbiturates Screen Not Detected Ur Phencyclidine Scrn Not Detected Ur Amphetamines Screen Not Detected U Benzodiazepines Scrn Not Detected Urine Cocaine Screen Not Detected U Marijuana (THC) Screen Not Detected Ethyl Alcohol < 10 Influenza Type A (PCR) NEGATIVE Influenza Type B (PCR) NEGATIVE RSV RNA Qual (PCR) NEGATIVE SARS-CoV-2 RNA (RT-PCR) NEGATIVE Imaging Radiology Impressions: ITS Impressions KUB X-Ray 08/07/25 16:34 IMPRESSION: Moderate stool in the right colon and rectum Electronically signed by: Lewis Becerril MD 08/07/2025 04:50 PM [facility] Mental Status Exam Mental Status Exam Narrative: Appearance: wearing hospital gown, fair hygiene, sleeping, in NAD Unable to complete full assessment. Medications Medications Current Medications Ascorbic Acid (Ascorbic Acid 500 Mg Tablet) 500 mg PO DAILY [facility] Last Admin: 08/08/25 07:16 Dose: 500 mg Buspirone HCl (Buspirone Hcl 5 Mg Tablet) 5 mg PO TID [facility] Last Admin: 08/08/25 07:16 Dose: 5 mg Docusate Sodium (Docusate Sodium 100 Mg Capsule) 100 mg PO BID [facility] Last Admin: 08/08/25 07:16 Dose: 100 mg Donepezil HCl (Donepezil Hcl 10 Mg Tablet) 10 mg PO DAILY@30 [facility] Last Admin: 08/08/25 09:21 Dose: 10 mg Escitalopram Oxalate (Escitalopram Oxalate 20 Mg Tablet) 20 mg PO DAILY [facility] Last Admin: 08/08/25 07:16 Dose: 20 mg Ferrous Sulfate (Ferrous Sulfate 324 Mg Tablet.) 324 mg PO DAILY [facility] Last Admin: 08/08/25 08:52 Dose: 324 mg Lisinopril (Lisinopril 5 Mg Tablet) 5 mg PO DAILY [facility]; Protocol Last Admin: 08/08/25 07:16 Dose: 5 mg Loratadine (Loratadine 10 Mg Tablet) 10 mg PO DAILY [facility] Last Admin: 08/08/25 07:16 Dose: 10 mg Memantine (Memantine Hcl 5 Mg Tablet) 5 mg PO BID [facility] Last Admin: 08/08/25 07:16 Dose: 5 mg Mirtazapine (Mirtazapine 15 Mg Tablet) 15 mg PO BEDTIME [facility] Last Admin: 08/07/25 20:05 Dose: 15 mg Omeprazole (Omeprazole 20 Mg Capsule.) 20 mg PO DAILY@0630 [facility] Last Admin: 08/08/25 06:37 Dose: 20 mg Risperidone (Risperidone 0.5 Mg Tablet) 0.5 mg PO BID [facility] Last Admin: 08/08/25 07:16 Dose: 0.5 mg Senna (Sennosides 8.6 Mg Tablet) 8.6 mg PO BEDTIME PRN PRN Reason: Constipation Trazodone HCl (Trazodone Hcl 25 Mg Halftab) 75 mg PO BEDTIME [facility] Last Admin: 08/07/25 20:04 Dose: 75 mg Allergies Allergies Allergy/AdvReac Type Severity Reaction Status Date / Time No Known Allergies Allergy Verified 08/07/25 13:07 Assessment & Plan Assessment & Plan (1) Frontotemporal dementia: Status: Acute Code(s): G31.09 - Other frontotemporal neurocognitive disorder; F02.80 - Dementia in other diseases classified elsewhere, unspecified severity, without behavioral disturbance, psychotic disturbance, mood disturbance, and anxiety Plan Mrs. George is a 54 year-old woman with hx of early FTD who is now in advanced stages of the disease and currently oriented only to self. She has been presenting with increase combative behaviors. Family reports plan even with behaviors is to bring her back home but they welcome additional medication changes. We also discussed referral for hospice and return home. In terms of medication changes, we discussed trying olanzapine as it may have more sedation that can help with agitation. We discussed that pt's condition at this point is advanced and close to terminal stages that sometime can present with more drastic change in agitation, followed by calmer period where person may not eat nor drink nor move much. PLAN 1. Pt to return back home with hospice services. 2. d/c risperidone, start olanzapine 5mg po BID. Add olanzapine 5mg po q6h prn agitation. if tolerated, can increase schedule olanzapine to 10mg po BID. OP can consider mood stabilizer like depakote for impulsive/aggressive behaviors. Total time managing care of this patient today ____ minutes.
[2025-08-08 14:36] VITALS: BP 111/46; PULSE 61; RESP 15; TEMP 36.3; O2SAT 100
--- NOTE | 2025-08-08 15:30 | PC.NURSE ---
this RN assumed care of this pt @1500, pt noted to be laying in hospital bed, eyes closed, respirations even and unlabored, bed alarm armed for safety, no apparent distress noted at this time
--- NOTE | 2025-08-08 16:15 | PC.NURSE ---
1500 medication held at this time due to pt being behavioral concern and difficulty w/ redirection, pt noted to be asleep, eyes closed, respirations even and unlabored, chair alarm, and bed alarm armed for pt safety
--- NOTE | 2025-08-08 18:30 | MHC.EDTECH ---
patient changed and linen as well. Offered some pudding and she ate 1/2 a cup
[2025-08-08] MEDS: traZODone HCL 25 MG HALFTAB 75 MG PO (20:57)
--- NOTE | 2025-08-08 21:00 | PC.NURSE ---
at this time pt noted to be attempting to climb out of bed, bedside sitter at the bedside attempting to redirect pt, pt began being combative attempting to hit sitter and this RN, this RN medicated the pt per OCT, pt able to swallow pills whole in pudding, pt refusing to drink pills whole w/ water. Pt provided warm blanket after being medicated, pt noted to lay back in bed, bed alarm armed for safety, sitter remains at the bedside.
[2025-08-08 23:52] VITALS: BP 146/62; PULSE 70; RESP 14; TEMP 36.2; O2SAT 96
--- NOTE | 2025-08-09 00:44 | PC.NURSE ---
at this time pt noted to be attempting to get out of bed, pt initially unable to be redirected w/ verbal commands, attempted to get pt onto bedside commode to use the bathroom. Pt combative w/ staff attempting to hit and kick, pt able to be redirected back into bed after attempt at commode use. Pt noted to be dry, fresh sheets provided, bed alarm and chair alarm armed for safety
[2025-08-09] MEDS: traZODone HCL 25 MG HALFTAB 75 MG PO ×2 (03:26→20:32)
[2025-08-09 06:00] VITALS: BP 127/53; PULSE 66; RESP 16; TEMP 36.6; O2SAT 96
[2025-08-09] MEDS: Ferrous Sulfate 324 MG TABLET.DR PO (08:08)
[2025-08-09 08:20] VITALS: BP 113/52; PULSE 74; RESP 14; TEMP 36.4; O2SAT 99
--- NOTE | 2025-08-09 08:31 | PC.NURSE ---
patient medicated per the MAR, pills crushed in pudding. patient observer at bedside for patient safety. pending dispo
--- NOTE | 2025-08-09 11:55 | PC.NURSE ---
cleaned and repositioned in bed. family at bedside.
--- NOTE | 2025-08-09 13:19 | MHC.CM.PN ---
Addendum entered by Elisabet Hollis, RN 08/09/25 14:01: CM DISCUSSED CASE W/ED PROVIDER, D/T PSYCH MAKING MED ADJUSTMENTS PT WILL REMIAN OVERNIGHT TO BE WATCHED, CM WILL UPDATE FAMILY. 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
[2025-08-09 16:18] VITALS: BP 97/52; PULSE 90
--- NOTE | 2025-08-09 17:16 | PC.NURSE ---
plan for potential discharge tomorrow. observation overnight to monitor for new med changes effectiveness. family understands and is agreeable to this plan
--- NOTE | 2025-08-09 18:22 | MHC.EDTECH ---
pt ate 100% of dinner tray
[2025-08-10] VITALS (7 sets, daily range): BP systolic 104–135; BP diastolic 42–78; PULSE 76–103; RESP 16–18; TEMP -17.7–36.5; O2SAT 94–99
--- NOTE | 2025-08-10 01:31 | PC.NURSE ---
Pt is asleep, equal chest rise and fall. Vital signs deferred at this time. RR even and unlabored.
--- NOTE | 2025-08-10 02:00 | PC.NURSE ---
This RN was alerted by the point of care technician that pt was up and out of bed and was becoming slightly combative. Pt was ambulated into the hallway and attempted to take pt to the bathroom. Pt refused to use the bathroom at this time. Pt was ambulated back to bed and helped back onto the hospital bed. Pt provided a warm blanket and lights were dimmed. Pt laying on hospital bed, now calmer.
[2025-08-10] MEDS: OLANZapine 10 MG VIAL IM (07:00)
[2025-08-10] MEDS: Ferrous Sulfate 324 MG TABLET.DR PO (07:57)
--- NOTE | 2025-08-10 10:24 | MHC.CM.ED ---
Patient remains in ER. Spoke with patient's daughter, Tisha via telephone. Patient's , Dinesh will be on-site at 12pm to transport patient home. Denise BERRIOS and Deirdre FOOTE aware. Tisha requested rx for zyprexa be sent to [facility] in [place]. Denise aware. Continue to monitor for d/c needs.
--- NOTE | 2025-08-10 11:36 | PC.NURSE ---
Assumed care of this patient at 1100, patient resting quietly in bed at this time, 1:1 sitter at bedside. Patient to be picked up by family anytime between 12 - 2pm today per previous RN/CM notes.
== END 2025-08-10 12:20 | disposition home or self-care (01) ==
PROVIDERS: Physician Assistant; Emergency Provider Emergency Medicine; PCP Family Medicine
DX: R45.1 Restlessness and agitation (principal); G31.09 Other frontotemporal neurocognitive disorder; F02.811 Dementia in other diseases classified elsewhere, unspecified severity, with agitation; I10 Essential (primary) hypertension; K59.00 Constipation, unspecified; Z79.899 Other long term (current) drug therapy
CPT/HCPCS: 36415; 74018; 80053; 80307; 81001; 82140; 85025; 87637; 99284; 99285; J2359; S9485

== ENCOUNTER → 2025-08-07 16:02 | Outpatient (BNV) | payer OTHER, SELFPAY | PROVIDERS: Emergency Provider Emergency Medicine; Visit Provider Social Worker | DX: G31.09 Other frontotemporal neurocognitive disorder (principal); F02.80 Dementia in other diseases classified elsewhere, unspecified severity, without behavioral disturbance, psychotic disturbance, mood disturbance, and anxiety | CPT/HCPCS: 99285 ==

== ENCOUNTER → 2025-08-07 16:16 | Outpatient (BNV) | payer OTHER, SELFPAY | PROVIDERS: Emergency Provider Emergency Medicine; Visit Provider Radiology Diagnostic Radiology | DX: K59.00 Constipation, unspecified (principal) | CPT/HCPCS: 74018 ==